=== PATIENT | female | born 1950 | race Caucasian/White ===

== ENCOUNTER → 2018-08-07 | Outpatient (CLI) | payer OTHER ==
[2015-12-01 11:20] VITALS: BP 115/78
[~2018-08-07] MED LIST: ASPI-630 PO; BENA20TA4 PO; BIOT1TAB12 PO; CHOL500016 PO; CINN500C2 PO; COD1CAPS2 PO; FEXO180T81 PO; FOLI1TAB16 PO; GARL10002 PO; HYDR-2145 PO; HYDR-3164 PO; IRON18TA PO; MAGN250T10 PO; METO50TA6 PO; MULT-245 PO; NIAC500T9 PO; OMEG1CAP6 PO; PYRI200T PO; REGADENOSON 0.4 MG/5 ML DISP.SYRIN. IV ONE; TURM500C7 PO; VITA400C36 PO; WARF-78 PO; WARF2.5T83 PO
--- NOTE | 2018-08-07 11:40 | CARD ---
MR#: [id number] Date of Study: 08/07/2018 Ordering Physician: LYUDMILA VAZQUEZ, Referring Physician: LYUDMILA VAZQUEZ Tech: Lindsey Munoz RDCS APPROVED REPORT EXAM: Two-dimensional and M-mode echocardiogram with Doppler and color Doppler. Other Information Quality : Good INDICATION Pre-Op Dyspnea on Exertion, History of VSD/PDA Repair at 10 years old 2D DIMENSIONS RVDd2.3 (2.9-3.5cm)Left Atrium(2D)3.1 (1.6-4.0cm) IVSd0.7 (0.7-1.1cm)Aortic Root(2D)3.0 (2.0-3.7cm) LVDd5.2 (3.9-5.9cm)LVOT Diameter2.1 (1.8-2.4cm) PWd0.8 (0.7-1.1cm)LVDs4.0 (2.5-4.0cm) FS (%) 23.5 %SV61.3 ml LVEF(%)45.0 (>50%) Aortic Valve AoV Peak Nikko.118.1cm/sAoV VTI27.0cm AO Peak GR.5.6mmHgLVOT Peak Nikko.97.5cm/s AO Mean GR.3mmHgAVA (VMAX)2.87cm2 JOON (VTI)3.10cm2 Mitral Valve MV E Soilifss92.4cm/sMV DECEL YDUP789pm MV A Ugolgdmq33.6cm/sE/A Ratio1.4 Tricuspid Valve TR P. Eotmxvvi827fp/sRAP MVCSXGPJ9nkHe TR Peak Gr.82sjXjDYTK07iiSa Pulmonary Vein S1 Sjkvbebv05.2cm/sD2 Vpdxwwtf44.8cm/s LEFT VENTRICLE The left ventricle is normal size. There is normal left ventricular wall thickness. Left ventricle sy stolic function is mildly impaired. The Ejection Fraction is 45-50%. There is global hypokinesis of t he left ventricle. Transmitral Doppler flow pattern is Grade II-pseudonormal filling dynamics. There is a small membranous ventricular septal defect with left to right shunt on color doppler. RIGHT VENTRICLE The right ventricle is normal size. The right ventricular systolic function is normal. ATRIA The left atrium size is normal. The right atrium size is normal. Interatrial septum anuerysmal but in tact without evidence of ASD or PFO, noted on 2-D or Doppler imaging. AORTIC VALVE The aortic valve is not well visualized but appears to be functioning normally by Doppler interrogati on. Doppler and Color Flow revealed no significant aortic regurgitation. There is no significant aort ic valvular stenosis. MITRAL VALVE The mitral valve is calcified but opens well. There is no evidence of mitral valve prolapse. There is no mitral valve stenosis. Doppler and Color-flow revealed mild mitral regurgitation. TRICUSPID VALVE The tricuspid valve is normal in structure and function. Doppler and Color Flow revealed mild eccentr ic tricuspid regurgitation. There is mild pulmonary hypertension. The PA pressure was estimated at 39 mmHg. There is no tricuspid valve stenosis. PULMONIC VALVE The pulmonic valve is not well visualized. Doppler and Color Flow revealed trace pulmonic valvular re gurgitation. There is no pulmonic valvular stenosis. GREAT VESSELS The aortic root is normal in size. The ascending aorta is not well seen. The IVC is normal in size an d collapses >50% with inspiration. PERICARDIAL EFFUSION There is no evidence of significant pericardial effusion. Critical Notification Critical Value: No <Conclusion> Left ventricle systolic function is mildly impaired. The Ejection Fraction is 45-50%. There is a small membranous ventricular septal defect with left to right shunt on color doppler. Mild mitral regurgitation. Mild eccentric tricuspid regurgitation. The PA pressure was estimated at 39 mmHg. There is no evidence of significant pericardial effusion. Signed by : Lyudmila Vazquez, Electronically Approved : 08/07/2018 11:39:37
--- NOTE | 2018-08-07 15:07 | RAD ---
MR#: [id number] Date of Study: 08/07/2018 Ordering Physician: FLIP NAVA, Referring Physician: MONIQUE BERNSTEIN Tech: RT Paula HensleyR) (N) APPROVED REPORT Test Type: Pharmacological Stress Nurse/Tech: Domonique ACUÑA Test Indications: Pre OP check Cardiac History: Cardiac cath 2 yrs ago, HTN, See EMR Medications: See EMR Medical History: See EMR Resting ECG: SR Resting Heart Rate: 64 bpm Resting Blood Pressure: 151/77mmHg Pretest Chest Pain: No chest pain Nurse/Tech Notes Lungs CTA; Heart tones regular. Consent: The procedure was explained to the patient in lay terms. Informed consent was witnessed. Sebastián eout was entered into [employer]. History and Stress Test performed by RT Xander (R) (N) Pharm. Details Pharmacologic stress testing was performed using 0.4mg per 5ml of regadenoson given intravenously ove r 7-10 seconds. Stress Symptoms No chest pain or symptoms. POST EXERCISE Reason for Termination: Infusion complete Max HR: 92 bpm Max Blood Pressure: 148/74mmHg Blood Pressure response to exercise: Normal blood pressure response during stress. Heart Rate response to exercise: WNL Chest Pain: No. Arrhythmia: No. ST Change: No. INTERPRETATION Stress EKG Conclusion: Baseline EKG showed sinus rhythm. No ischemic changes at peak stress. No arr hythmias. Imaging Protocol IMAGE PROTOCOL: Rest Tc-99m/stress Tc-99m 1 day Rest: Stress: Viability: Radiopharm.Tc99m YgkjxnirdKc27i Sestamibi Dose10.5mCi 33mCi Duration 13min. 13min. Img Date 08/07/2018 08/07/2018 Inj-Img Yilq58ipy. 60min. Rest Admin Site:IV - Left AntecubitalAdministrator:RT Shellie (R)(N) Stress Admin Site: IV - Left AntecubitalAdministrator: RT Maureen Terrell)(N) STRESS DATA End Diast. Vol.92.0mlLVEDV index BSA49.0ml End Syst. Vol.28.0mlLVESV index BSA15.0ml Myocardial Njtr554.0gEject. Gtawqupl28.0% Stress Scores Regional WT0.00Summed WT0.00 Regional WM0.00Summed WM4.00 Study quality was good. Left Ventricular size was Normal at Rest and Stress. Lung uptake was . Left Ventricular ejection fraction is 71%. The rest and stress images show normal perfusion, normal contraction and thickening. LV Perf. Quant 17 Seg. SSS0.00 17 Seg. SRS2.00 17 Seg. SDS0.00 Stress Defect Extent (% LAD)0.00Rest Defect Extent (% LAD)3.80Rev. Defect Extent (% LAD)0.00 Stress Defect Extent (% LCX) 0.00Rest Defect Extent (% LCX)0.00Rev. Defect Extent (% LCX)0.00 Stress Defect Extent (% RCA)0.00Rest Defect Extent (% RCA)0.00Rev. Defect Extent (% RCA)0.00 Stress Defect Extent (% WALT)0.00Rest Defect Extent (% WALT)3.90Rev. Defect Extent (% WALT)0.00 Conclusion 1. Regadenoson cardioisotope stress test did not show any evidence of ischemia or infarct. 2. Normal left ventricular systolic function with ejection fraction calculated at 71%. 3. Low risk for cardiac events. Signed by : Wang Nolasco, Electronically Approved : 08/07/2018 15:06:56
== END | disposition home or self-care (01) ==
LOC: ECHO 08:37
PROVIDERS: ATTEND Internal Medicine Cardiovascular Disease
DX: Z01.810 Encounter for preprocedural cardiovascular examination (principal); I08.1 Rheumatic disorders of both mitral and tricuspid valves; I27.20 Pulmonary hypertension, unspecified; I10 Essential (primary) hypertension; R06.09 Other forms of dyspnea
CPT/HCPCS: 78452; 93017; 93306; A9500; J2785

== ENCOUNTER 2018-09-07 06:32 | Day surgery (SDC) | payer OTHER ==
[~2018-09-07] VITALS: Ht 160 cm; Wt 85.0 kg
[~2018-09-07 06:32] MED LIST changes: +BUPIVACAINE-EPI 0.25%-1:200000 MPF 30 ML VIAL. ONE; -HYDR-3164 PO; -REGADENOSON 0.4 MG/5 ML DISP.SYRIN. IV ONE
[2018-09-07] MEDS ORDERED: ONDANSETRON PF 4 MG/2 ML VIAL. IV PRN (07:00)
[2018-09-07] MEDS ORDERED: fentaNYL PF VIAL 100 MCG/2 ML VIAL IV PRN ×2 (07:00)
[2018-09-07] MEDS ORDERED: PROCHLORPERAZINE 10 MG/2 ML VIAL. IV PRN (07:00)
[2018-09-07] MEDS ORDERED: IV RINGERS,LACTATED 1000ML 1,000 ML IV SCH (07:00)
[2018-09-07] MEDS ORDERED: ONDANSETRON PF 4 MG/2 ML VIAL. ONE ×2 (07:11)
[2018-09-07] MEDS ORDERED: PROPOFOL 20 ML IV ONE (07:11)
[2018-09-07] MEDS ORDERED: LIDOCAINE 2% PF 5 ML VIAL. ONE (07:11)
[2018-09-07] MEDS ORDERED: DEXAMETHASONE SOD PHOS 4 MG/ML VIAL ONE ×2 (07:11)
[2018-09-07] MEDS ORDERED: fentaNYL PF VIAL 100 MCG/2 ML VIAL ONE (07:12)
[2018-09-07] MEDS ORDERED: ROCURONIUM 50 MG/5 ML VIAL. ONE (07:12)
[2018-09-07 07:45] LABS: PROTHROMBIN TIME PATIENT 15.5 SEC (11.7-14.0)
[2018-09-07] MEDS ORDERED: ACETAMINOPHEN 500 MG TABLET PO ONE (08:00)
[2018-09-07] MEDS ORDERED: GLYCOPYRROLATE 1 MG/5 ML VIAL. ONE (08:40)
[2018-09-07] MEDS ORDERED: NEOSTIGMINE METHYLSULFATE 5 MG/5 ML SYRINGE. ONE (08:57)
[2018-09-07] MEDS ORDERED: KETOROLAC 30 MG/ML INJ FOR OR. INJ ONE (09:10)
--- NOTE | 2018-09-07 09:16 | PDOC4 ---
Operative Note Operative Note Date: 09/07/2018 Preoperative diagnosis: Incarcerated umbilical hernia PostOperative diagnosis: Same Procedure: Robotic-assisted laparoscopic umbilical hernia repair with mesh Specimen: None Surgeon: Mitch Dictation: Patient is a 68-year-old female is complained of a painful bulge at her umbilicus and present for a number of years getting more painful and larger areas procedure of robotic-assisted laparoscopic ventral hernia repair with mesh was explained to the patient in detail risks benefits were also discussed including bleeding infection injury to intra-abdominal contents possibly necessitating further or open operations alternatives to this procedure also discussed with patient who seemed to understand and gave both verbal and written consent to have the procedure performed. Patient was taken to the operating room placed supine position general anesthesia was initiated once patient was sleep and intubated her abdomen was prepped and draped usual sterile fashion using ChloraPrep and area in the left upper quadrant was injected with quarter percent Marcaine with epinephrine incision was made 11 blade scalpel and a 5 mm Visiport was placed under direct visualization into the abdomen and a pneumoperitoneum was achieved once this was complete a 8mm da Holland port was placed in the left mid abdomen and a 8mm da Holland port was placed in the left lower abdomen the 5 mm left upper quadrant port was changed out for 8mm da Holland port and of robot was brought in and docked all port sites surgeon went to the robotic console using a grasping and Endo Aron scissors the hernia contents were reduced the hernia defect was then closed with a running 20V LOC nonabsorbable suture ventral light ST mesh was then placed over the hernia defect and sewn into place with a running 20V LOC absorbable suture. Once this was complete the pneumoperitoneum was reduced all ports removed port sites were closed for septic or Monocryl Mastisol Steri-Strips and island dressings were applied. Patient was awakened and asked bated operating room taken to recovery in stable condition all sponge instrument needle counts listed as correct estimated blood loss less than 5 mL AGGIE RIVERA MD Sep 07, 2018 09:16
--- NOTE | 2018-09-07 09:19 | DISCH ---
DISCHARGE INSTRUCTIONS Condition on Discharge Condition on Discharge: Stable Activity After Discharge Activity Instructions for Disc: Avoid exertion Other activity instructions: no lifting more than 20 pounds for 2 weeks Diet after Discharge Diet after Discharge: Regular Wound Incision Care Wound/Incision Care: Other, see below Other wound/incision instructi: May shower in 24 hours Contacting the after DC Call your doctor for: If your condition worsens Follow-Up Follow up with: Dr. Rivera in 2 weeks AGGIE RIVERA MD Sep 07, 2018 09:19
[2018-09-07] MEDS ORDERED: SEVOFLURANE 31 TO 60 MINUTES. IH ONE (09:28)
[2018-09-07] MEDS ORDERED: HYDR-3164 PO (09:40)
[2018-09-07] MEDS ORDERED: HYDROcodone/APAP 5/325MG 1 TAB TABLET PO ONE ×2 (09:45)
[2018-09-07] MEDS ORDERED: ceFAZolin 2GM PREMIX 2 GM/50 ML BAG IV ONE (10:00)
[2018-09-07 10:29] VITALS: BP 144/78
== END 2018-09-07 11:07 | disposition home or self-care (01) ==
LOC: SURG 06:32
PROVIDERS: ATTEND Surgery
DX: K42.0 Umbilical hernia with obstruction, without gangrene (principal); I10 Essential (primary) hypertension; E78.00 Pure hypercholesterolemia, unspecified; I48.0 Paroxysmal atrial fibrillation; Z88.6 Allergy status to analgesic agent; Z88.8 Allergy status to other drugs, medicaments and biological substances; Z98.49 Cataract extraction status, unspecified eye; Z79.899 Other long term (current) drug therapy; Z98.890 Other specified postprocedural states; Z96.1 Presence of intraocular lens
CPT/HCPCS: 36415; 49653; 85610; 85730; A7015; C1781; J0696; J1100; J1885; J2001; J2405; J2704; J2710; J3010; J3490; S2900

== ENCOUNTER 2019-02-10 07:31 | Inpatient (IN) | payer OTHER ==
[~2019-02-10] VITALS: Ht 154.9 cm; Wt 84.4 kg
[~2019-02-10 07:31] MED LIST changes: -BUPIVACAINE-EPI 0.25%-1:200000 MPF 30 ML VIAL. ONE; -COD1CAPS2 PO; +COD1CAPS6 PO; +HYDR-3164 PO; +VITA-8 PO; -VITA400C36 PO
[2019-02-10 07:59] LABS: BASO # 0.1 x10^3/uL (0.0-0.2); BASO % 1 % (0-3); EOS # 0.1 x10^3/uL (0.0-0.7); EOS % 2 % (0-3); HEMATOCRIT 45.9 % (36.0-47.0); HEMOGLOBIN 15.4 g/dL (12.0-15.5); LYMPH # 3.2 x10^3/uL (1.0-4.8); LYMPH % 34 % (24-48); MEAN CORPUSCULAR HEMOGLOBIN 31 pg (25-35); MEAN CORPUSCULAR HGB CONC 34 g/dL (31-37); MEAN CORPUSCULAR VOLUME 92 fL (79-100); MONO # 0.6 x10^3/uL (0.0-1.1); MONO % 7 % (0-9); NEUT # 5.5 x10^3/uL (1.8-7.7); NEUT % 57 % (31-73); PLATELET COUNT 277 x10^3/uL (140-400); RED BLOOD COUNT 4.99 x10^6/uL (3.50-5.40); RED CELL DISTRIBUTION WIDTH 13.9 % (11.5-14.5); WHITE BLOOD COUNT 9.5 x10^3/uL (4.0-11.0)
[2019-02-10] MEDS ORDERED: ASPIRIN CHEWABLE 81 MG TABLET. PO ONE (08:00)
[2019-02-10] MEDS ORDERED: ADENOSINE 6 MG/2 ML VIAL. IV ONE ×3 (08:00→08:30)
[2019-02-10] MEDS ORDERED: dilTIAZem IV PUSH 25 MG/5 ML VIAL ONE (08:09)
[2019-02-10 08:14] LABS: CREATININE 0.8 mg/dL (0.6-1.0); GFR 70.9
[2019-02-10 08:20] LABS: ALBUMIN 3.7 g/dL (3.4-5.0); ALBUMIN/GLOBULIN RATIO 0.8 (1.0-1.7); TOTAL BILIRUBIN 0.6 mg/dL (0.2-1.0); TOTAL PROTEIN 8.1 g/dL (6.4-8.2)
--- NOTE | 2019-02-10 08:20 | PHYS DOC ---
Past Medical History Past Medical History: A-Fib Additional Past Medical Histor: SVT Additional Past Surgical Histo: PDA, VSD repair Adult General Chief Complaint Chief Complaint: RAPID HEART RATE HPI HPI Patient is a 68-year-old female, with a past history of ASD and VSD repairs as a child, with a history of atrial fibrillation and SVT in the past, on warfarin, who presents to the emergency department for evaluation. She states that she is relatively asymptomatic, but her apple watch told her that she had a fast heart rate. She presents to the emergency department in a now complex regular tachycardia at a rate of approximately 205 beats for minute. She denies any chest pain, dizziness, lightheadedness, or shortness of breath. There are no alleviating or exacerbating factors to her symptoms. She is not expressing any palpitations, and does not have any sensation that her heart is beating fast. Review of Systems Review of Systems Constitutional: Denies fever or chills [] Eyes: Denies change in visual acuity, redness, or eye pain [] HENT: Denies nasal congestion or sore throat [] Respiratory: Denies cough or shortness of breath [] Cardiovascular: The patient denies any shortness of breath, chest pain, palpitations, or orthopnea [] GI: Denies abdominal pain, nausea, vomiting, bloody stools or diarrhea [] : Denies dysuria or hematuria [] Musculoskeletal: Denies back pain or joint pain [] Integument: Denies rash or skin lesions [] Neurologic: Denies headache, focal weakness or sensory changes [] Endocrine: Denies polyuria or polydipsia [] All other systems were reviewed and found to be within normal limits, except as documented in this note. Current Medications Current Medications Current Medications Medications (Trade) Dose Ordered Sig/[facility] Start Time Stop Time Status Last Admin Dose Admin Adenosine (Adenocard) 12 mg 1X ONCE 02/10/19 08:30 02/10/19 08:31 DC 02/10/19 08:05 12 MG Aspirin (Children'S Aspirin) 324 mg 1X ONCE 02/10/19 08:00 02/10/19 08:01 DC 02/10/19 07:53 324 MG Diltiazem HCl (Cardizem Iv Push) 20 mg 1X ONCE 02/10/19 08:30 02/10/19 08:31 DC 02/10/19 08:15 20 MG Diltiazem HCl 125 mg/Dextrose 125 ml @ 5 mls/hr 1X ONCE 02/10/19 08:30 02/11/19 09:29 02/10/19 08:20 5 MLS/HR Sodium Chloride 1,000 ml @ 1,000 mls/hr 1X ONCE 02/10/19 08:30 02/10/19 09:29 02/10/19 08:20 1,000 MLS/HR Allergies Allergies Allergies Coded Allergies Type Severity Reaction Last Updated Verified codeine Allergy Intermediate 09/05/18 Yes morphine Allergy Intermediate 09/05/18 Yes pamabrom Adverse Reaction Intermediate passed out 09/05/18 Yes Physical Exam Physical Exam PHYSICAL EXAM: CONSTITUTIONAL: Well developed, well nourished HEAD: normocephalic, atraumatic EENT: PERRL, EOMI. Conjunctivae normal color, sclerae non-icteric; moist mucous membranes. NECK: Supple, non-tender; no meningismus. LUNGS: Lungs CTA, breathing even and unlabored. Normal air movement. HEART: Rapid, regular rhythm, no murmur CHEST: No deformity; non-tender ABDOMEN: The abdomen is soft, and non-tender, no masses or bruits. EXTREM: Normal ROM; no deformity, no calf tenderness. Normal pulses palpable in all extremities. There is no pedal edema. SKIN: No rash; no diaphoresis NEURO: Alert; normal speech and cognition; CN's grossly intact; strength grossly intact without focal deficit. BACK: No CVA TTP. Current Patient Data Vital Signs Vital Signs Date Time Temp Pulse Resp B/P (MAP) Pulse Ox O2 Delivery O2 Flow Rate FiO2 02/10/19 08:15 198 117/62 02/10/19 07:32 97.3 20 98 Room Air 97.3 Lab Values Laboratory Tests Test 02/10/19 07:49 White Blood Count 9.5 x10^3/uL (4.0-11.0) Red Blood Count 4.99 x10^6/uL (3.50-5.40) Hemoglobin 15.4 g/dL (12.0-15.5) Hematocrit 45.9 % (36.0-47.0) Mean Corpuscular Volume 92 fL (79-100) Mean Corpuscular Hemoglobin 31 pg (25-35) Mean Corpuscular Hemoglobin Concent 34 g/dL (31-37) Red Cell Distribution Width 13.9 % (11.5-14.5) Platelet Count 277 x10^3/uL (140-400) Neutrophils (%) (Auto) 57 % (31-73) Lymphocytes (%) (Auto) 34 % (24-48) Monocytes (%) (Auto) 7 % (0-9) Eosinophils (%) (Auto) 2 % (0-3) Basophils (%) (Auto) 1 % (0-3) Neutrophils # (Auto) 5.5 x10^3/uL (1.8-7.7) Lymphocytes # (Auto) 3.2 x10^3/uL (1.0-4.8) Monocytes # (Auto) 0.6 x10^3/uL (0.0-1.1) Eosinophils # (Auto) 0.1 x10^3/uL (0.0-0.7) Basophils # (Auto) 0.1 x10^3/uL (0.0-0.2) Prothrombin Time 17.0 SEC (11.7-14.0) H Prothrombin Time INR 1.4 (0.8-1.1) H Sodium Level 138 mmol/L (136-145) Potassium Level 4.1 mmol/L (3.5-5.1) Chloride Level 103 mmol/L (98-107) Carbon Dioxide Level 24 mmol/L (21-32) Anion Gap 11 (6-14) Blood Urea Nitrogen 19 mg/dL (7-20) Creatinine 0.8 mg/dL (0.6-1.0) Estimated GFR (Cockcroft-Gault) 70.9 BUN/Creatinine Ratio 24 (6-20) H Glucose Level 147 mg/dL (70-99) H Calcium Level 9.0 mg/dL (8.5-10.1) Total Bilirubin 0.6 mg/dL (0.2-1.0) Aspartate Amino Transferase (AST) 30 U/L (15-37) Alanine Aminotransferase (ALT) 16 U/L (14-59) Alkaline Phosphatase 98 U/L (46-116) Troponin I Quantitative < 0.017 ng/mL (0.000-0.055) FT-Oai-P-Type Natriuretic Peptide 1800 pg/mL (0-124) H Total Protein 8.1 g/dL (6.4-8.2) Albumin 3.7 g/dL (3.4-5.0) Albumin/Globulin Ratio 0.8 (1.0-1.7) L Laboratory Tests 02/10/19 07:49 Laboratory Tests 02/10/19 07:49 EKG EKG Supraventricular tachycardia at a rate of 205 beats for minute, normal axis, normal intervals, there is lateral ST depression and T-wave inversion.[] Repeat EKG, post Cardizem administration, shows likely atrial flutter interventricular to 104 bpm, normal axis, normal intervals. There are no acute ischemic ST/T changes. Radiology/Procedures Radiology/Procedures ER physician preliminary chest x-ray interpretation: No acute disease.. Cardiomegaly is noted, as are postsurgical sternotomy changes. Course & Med Decision Making Course & Med Decision Making Pertinent Labs and Imaging studies reviewed. (See chart for details) [] 8:15 AM: Initial the adenosine administration of 6 mg did transiently slow the heart rate down, although rapidly accelerated back to its baseline rate of 205 beats for minute. There appeared to be possible flutter waves although there was some motion artifact present. Subsequent only 12 mg of adenosine was administered, with a similar result, although clear diagnostic flutter waves were observed when the ventricular rate was slowed. Thus, AV dilma blocking agents will be administered, and after initial bolus of Cardizem 20 mg the patient's heart rate has dropped to approximately 100 bpm. 9:04 AM: Patient's condition remained stable. Heart rate is in the 60s to 80s, with atrial flutter with variable block. The patient states her INR was 4.3 about a week and a half ago and her physician had her decrease her dose, which might explain her current low INR. I spoke with the hospitalist, who accepted the patient to the hospital for further evaluation and treatment. CRITICAL CARE TIME: 45 Minutes, excluding any procedures and care of other patients. Dragon Disclaimer Dragon Disclaimer This electronic medical record was generated, in whole or in part, using a voice recognition dictation system. Departure Departure Impression: Primary Impression: Atrial flutter with rapid ventricular response Disposition: ADMITTED INPATIENT Admitting Physician: HIMS Condition: GUARDED Referrals: NASIM BONILLA MD (PCP) RICKI PEREZ MD Feb 10, 2019 08:20
[2019-02-10 08:23] LABS: POTASSIUM 4.1 mmol/L (3.5-5.1)
[2019-02-10] MEDS ORDERED: dilTIAZem INJ 125 MG in IV DEXTROSE 5% 100ML 100 ML IV ONE (08:30)
[2019-02-10] MEDS ORDERED: IV NORMAL SALINE 1000ML BAG 1,000 ML IV ONE (08:30)
[2019-02-10] MEDS ORDERED: dilTIAZem IV PUSH 25 MG/5 ML VIAL IVP ONE (08:30)
--- NOTE | 2019-02-10 09:16 | RAD ---
CHEST AP ONLY Clinical Indication: Chest pain, palpitations Comparison: None. Findings: Portable upright frontal view of the chest was obtained. Sternal wires and mediastinal clips noted. The cardiomediastinal silhouette is normal. Lungs are clear. There is no pneumothorax. No pleural effusion is appreciated. No acute bone abnormality. IMPRESSION: No acute cardiopulmonary process. Electronically signed by: Gentry Pereira MD (02/10/2019 9:14 AM) [facility]
[2019-02-10] MEDS ORDERED: traMADol 50 MG TABLET PO PRN (10:00)
[2019-02-10] MEDS ORDERED: ONDANSETRON PF 4 MG/2 ML VIAL. IVP PRN (10:00)
[2019-02-10] MEDS ORDERED: fentaNYL PF VIAL 100 MCG/2 ML VIAL IVP PRN (10:00)
[2019-02-10] MEDS ORDERED: TEMAZEPAM 7.5 MG CAPSULE PO PRN (10:00)
[2019-02-10] MEDS ORDERED: ACETAMINOPHEN 500 MG TABLET PO PRN (10:00)
[2019-02-10 10:12] VITALS: BP 126/84
[2019-02-10] MEDS ORDERED: CETIRIZINE HCL 10 MG TABLET. PO SCH (10:30)
[2019-02-10] MEDS: LISINOPRIL 20 MG TABLET PO SCH ×2 (10:30→10:44)
[2019-02-10] MEDS: METOPROLOL TART IMMED RELEASE 50 MG TABLET. PO SCH ×2 (10:30→21:37)
[2019-02-10] MEDS: PYRIDOXINE 50 MG TABLET. PO SCH (10:43)
[2019-02-10] MEDS: CHOLECALCIFEROL (VITAMIN D3) 5,000 UNIT CAPSULE PO SCH (10:43)
[2019-02-10] MEDS: FOLIC ACID 1 MG TABLET. PO SCH (10:43)
[2019-02-10] MEDS: VITAMIN E 200 UNIT CAPSULE. PO SCH (10:43)
[2019-02-10] MEDS: MAGNESIUM OXIDE 400 MG TABLET PO SCH (10:43)
--- NOTE | 2019-02-10 11:07 | PDOC2 ---
CARDIOLOGY CONSULT NOTE CHEIF COMPLAINT: Heart racing HPI: Very pleasant 68 y.o woman presenting to the hospital for palpitations. Recently seen by my partner Dr. Nolasco and on event monitoring did not have any significant pathology. She was last admitted in November with afib/atach. Was supposed to be started on amiodarone but did not due to underlying bradycardia. She denies any syncope, chest pain, dyspnea,orthopnea or PND. No other acute issues. PMHX: 1. Prior PDA - repaired at 2. Prior VSD repair at age 10 3. HTN 4. 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 No alcohol, tob or illicit drug use. FAMHX: NC CURRENT MEDS: Current Medications Medications (Trade) Dose Ordered Sig/Silvana Route PRN Reason Start Time Stop Time Status Last Admin Dose Admin Adenosine (Adenocard) 6 mg 1X ONCE IV 02/10/19 08:00 02/10/19 08:01 DC 02/10/19 07:54 Aspirin (Children'S Aspirin) 324 mg 1X ONCE PO 02/10/19 08:00 02/10/19 08:01 DC 02/10/19 07:53 Adenosine (Adenocard) 12 mg 1X ONCE IV 02/10/19 08:30 02/10/19 08:31 DC 02/10/19 08:05 Diltiazem HCl (Cardizem Iv Push) 20 mg 1X ONCE IVP 02/10/19 08:30 02/10/19 08:31 DC 02/10/19 08:15 Diltiazem HCl 125 mg/Dextrose 125 ml @ 5 mls/hr 1X ONCE IV 02/10/19 08:30 02/11/19 09:29 02/10/19 08:20 Sodium Chloride 1,000 ml @ 1,000 mls/hr 1X ONCE IV 02/10/19 08:30 02/10/19 09:29 DC 02/10/19 08:20 Folic Acid (Folic Acid) 1 mg DAILY PO 02/10/19 10:30 02/10/19 10:43 Vitamin D (Vitamin D3) 5,000 unit DAILY PO 02/10/19 10:30 02/10/19 10:43 Magnesium Oxide (Magnesium Oxide) 400 mg DAILY PO 02/10/19 10:30 02/10/19 10:43 Pyridoxine HCl (Vitamin B-6) 200 mg DAILY PO 02/10/19 10:30 02/10/19 10:43 Vitamin E (Vitamin E.) 400 unit DAILY PO 02/10/19 10:30 02/10/19 10:43 ALLERGIES: Allergies Coded Allergies Type Severity Reaction Last Updated Verified codeine Allergy Intermediate 09/05/18 Yes morphine Allergy Intermediate 09/05/18 Yes pamabrom Adverse Reaction Intermediate passed out 09/05/18 Yes ROS: Negative for 12/31 systems reviewed unless otherwise noted above in HPI PHYSICAL EXAM: Vital Signs/I&O: Vital Signs Date Time Temp Pulse Resp B/P (MAP) Pulse Ox O2 Delivery O2 Flow Rate FiO2 02/10/19 10:12 97.7 91 18 126/84 (98) 93 Room Air 97.7 Physical Exam: GEN.: No apparent distress. Alert and oriented. HEENT: Head is normocephalic, atraumatic NECK: Supple. LUNGS: Clear to auscultation. HEART: RRR, S1, S2 present. Peripheral pulses intact ABDOMEN: Soft, nontender. Positive bowel sounds. EXTREMITIES: Without any cyanosis. NEUROLOGIC: Normal speech, normal tone PSYCHIATRIC: Normal affect, normal mood. SKIN: No ulcerations DIAGNOSTIC TESTING: EKG reviewed. Tele with atrial flutter INR 1.4 BNP elevated ASSESSMENT: 1. Atrial flutter with variable conduction 2. HTN and other comorbidities as noted above. PLAN: 1. Patient needs to get her tooth removed and also planning to go to [place] next week. She wants conservative mgmt for now. 2. Continue rate control with metoprolol. 3. When she returns from her trips, she will plan for possible CVN if needed versus ablation referral. Ok to DC tomorrow if rate controlled. INR mgmt per PCP. FLIP NAVA MD Feb 10, 2019 11:07
--- NOTE | 2019-02-10 11:21 | PDOC1 ---
History and Physical Date of Admission Date of Admission DATE: 02/10/19 TIME: 11:15 Identification/Chief Complaint Chief Complaint HR 200s by fitbit Source Source: Caregiver, Chart review, Patient History of Present Illness History of Present Illness 68 white female, chronic a fib, known to Dr faria, on warf, INR was 4,1 few days ago so was instructed to hold warf for 2 days so she did and started taking it monday and INR today is 1,4. HR 200s, SVT initially, got adenosine which resolved temporarily then went back, so adenosine 12 mgs, not resolved, HR 200s, and on cardziem gtt- 60 bpm at ER,. CArds consulted,. lytes ok, extra BB dose today, aim for dc tmr as she has a dental procedure etc tmr dw Rn and cards She is compliant with the rest of her cardiac meds Past Medical History Cardiovascular: AFIB, CHF, HTN Pulmonary: No pertinent hx Musculoskeletal: Osteoarthritis Infectious disease: No pertinent hx Past Surgical History Past Surgical History: Other Family History Family History: Hypertension Social History Smoke: No ALCOHOL: rare Drugs: None Current Problem List Problem List Problems Medical Problems: (1) Atrial flutter with rapid ventricular response Status: Acute Current Medications Current Medications Current Medications Adenosine (Adenocard) 6 mg 1X ONCE IV Last administered on 02/10/19at 07:54; Start 02/10/19 at 08:00; Stop 02/10/19 at 08:01; Status DC Aspirin (Children'S Aspirin) 324 mg 1X ONCE PO Last administered on 02/10/19at 07:53; Start 02/10/19 at 08:00; Stop 02/10/19 at 08:01; Status DC Adenosine (Adenocard) 6 mg STK-MED ONCE IV ; Start 02/10/19 at 08:03; Stop 02/10/19 at 08:04; Status DC Diltiazem HCl (Cardizem Iv Push) 25 mg STK-MED ONCE .ROUTE ; Start 02/10/19 at 08:09; Stop 02/10/19 at 08:09; Status DC Adenosine (Adenocard) 12 mg 1X ONCE IV Last administered on 02/10/19at 08:05; Start 02/10/19 at 08:30; Stop 02/10/19 at 08:31; Status DC Diltiazem HCl (Cardizem Iv Push) 20 mg 1X ONCE IVP Last administered on 02/10/19at 08:15; Start 02/10/19 at 08:30; Stop 02/10/19 at 08:31; Status DC Diltiazem HCl 125 mg/Dextrose 125 ml @ 5 mls/hr 1X ONCE IV Last administered on 02/10/19at 08:20; Start 02/10/19 at 08:30; Stop 02/11/19 at 09:29 Sodium Chloride 1,000 ml @ 1,000 mls/hr 1X ONCE IV Last administered on 02/10/19at 08:20; Start 02/10/19 at 08:30; Stop 02/10/19 at 09:29; Status DC Acetaminophen (Tylenol) 500 mg PRN Q6HRS PRN PO MILD PAIN / TEMP; Start 02/10/19 at 10:00 Ondansetron HCl (Zofran) 4 mg PRN Q6HRS PRN IVP NAUSEA/VOMITING; Start 1 04/12/18 at 10:00 Tramadol HCl (Ultram) 50 mg PRN Q6HRS PRN PO MODERATE PAIN; Start 02/10/19 at 10:00 Fentanyl Citrate (Fentanyl 2ml Vial) 50 mcg PRN Q2HR PRN IVP SEVERE PAIN; Start 02/10/19 at 10:00 Temazepam (Restoril) 7.5 mg PRN QHS PRN PO INSOMNIA; Start 02/10/19 at 10:00 Diltiazem HCl 125 mg/Dextrose 125 ml @ 5 mls/hr CONT PRN IV SEE I/O RECORD; Start 02/10/19 at 21:00 Aspirin (Children'S Aspirin) 81 mg DAILY PO ; Start 02/11/19 at 09:00 Folic Acid (Folic Acid) 1 mg DAILY PO Last administered on 02/10/19at 10:43; Start 02/10/19 at 10:30 Metoprolol Tartrate (Lopressor) 50 mg BID PO ; Start 02/10/19 at 10:30 Lisinopril (Prinivil) 20 mg DAILY PO ; Start 02/10/19 at 10:30 Non-Formulary Medication (Biotin/Keratin (Biotin Plus Keratin Tablet)) 1 each DAILY PO ; Start 02/11/19 at 09:00; Status UNV Vitamin D (Vitamin D3) 5,000 unit DAILY PO Last administered on 02/10/19at 10:43; Start 02/10/19 at 10:30 Non-Formulary Medication (Cinnamon Bark (Cinnamon)) 500 mg DAILY PO ; Start 02/11/19 at 09:00; Status UNV Cetirizine HCl (ZyrTEC) 10 mg DAILY PO ; Start 02/10/19 at 10:30; Stop 02/10/19 at 10:36; Status DC Non-Formulary Medication (Garlic ) 1,000 mg DAILY PO ; Start 02/11/19 at 09:00; Status UNV Magnesium Oxide (Magnesium Oxide) 400 mg DAILY PO Last administered on 02/10/19at 10:43; Start 02/10/19 at 10:30 Pyridoxine HCl (Vitamin B-6) 200 mg DAILY PO Last administered on 02/10/19at 10:43; Start 02/10/19 at 10:30 Vitamin E (Vitamin E.) 400 unit DAILY PO Last administered on 02/10/19at 10:43; Start 02/10/19 at 10:30 Warfarin Sodium (Coumadin Per Pharmacy) 1 each PRN DAILY PRN MC SEE COMMENTS; Start 02/10/19 at 10:00 Warfarin Sodium (Coumadin) 5 mg 1X WARF ONCE PO ; Start 02/10/19 at 16:00; Stop 02/10/19 at 16:01 Enoxaparin Sodium (Lovenox 40mg Syringe) 40 mg Q24H SQ ; Start 02/10/19 at 16:00; Stop 02/10/19 at 10:32; Status DC Enoxaparin Sodium (Lovenox 80mg Syringe) 80 mg BID SQ Last administered on 02/10/19at 11:01; Start 02/10/19 at 10:45 Metoprolol Tartrate (Lopressor) 25 mg 1X ONCE PO ; Start 02/10/19 at 11:30; Stop 02/10/19 at 11:31 Active Scripts Active Reported Coumadin (Warfarin Sodium) 2.5 Mg Tablet 1 Tab PO QODAY Benazepril Hcl 20 Mg Tablet 1 Tab PO DAILY Metoprolol Tartrate 50 Mg Tablet 1 Tab PO BID Biotin Plus Keratin Tablet (Biotin/Keratin) 1 Each Tablet 1 Each PO DAILY Aspirin 81 Mg Tab.chew 1 Tab PO DAILY Garlic 1,000 Mg Capsule 1,000 Mg PO DAILY Vitamin D3 (Cholecalciferol (Vitamin D3)) 5,000 Unit Tablet 1 Tab PO DAILY Magnesium (Magnesium Oxide) 250 Mg Tablet 250 Mg PO DAILY Cinnamon (Cinnamon Bark) 500 Mg Capsule 500 Mg PO DAILY Vitamin B-6 (Pyridoxine Hcl) 200 Mg Tablet.er 200 Mg PO DAILY Folic Acid 1 Mg Tablet 1 Tab PO DAILY Vitamin E (Vitamin E Mixed) 400 Unit Capsule 400 Unit PO DAILY Allergies Allergies: Coded Allergies: codeine (Verified Allergy, Intermediate, 09/05/18) HYPOTENSION morphine (Verified Allergy, Intermediate, 09/05/18) HYPOTENSION pamabrom (Verified Adverse Reaction, Intermediate, passed out, 09/05/18) PATIENT IS NOT ALLERGIC TO ACETOMINOPHEN ROS Review of System no symptoms whatsoever with that HR 200s Physical Exam General: Alert, Oriented X3, Cooperative, No acute distress HEENT: Atraumatic, PERRLA Lungs: Clear to auscultation, Normal air movement Heart: S1S2, no thrills, no rubs, no gallops, no murmurs, no jug vein distention, irregularly irregular Cardiovascular: S1, S2 Breasts: Normal, Rt breast nml w/o mass, Lt breast nml w/o mass, Nipples normal Abdomen: Normal bowel sounds, Soft, No tenderness, No hepatosplenomegaly, No masses Rectal Exam: not examined PELVIC: Nml ext genitalia Extremities: No clubbing, No cyanosis, No edema, Normal pulses, No tenderness/swelling Skin: No rashes, No breakdown, No significant lesion Neuro: Normal gait, Normal speech, Strength at 5/5 X4 ext, Normal tone, Sensation intact, Cranial nerves 3-12 NL, Reflexes 2+ Psych/Mental Status: Mental status NL, Mood NL Vitals Vitals Vital Signs Date Time Temp Pulse Resp B/P (MAP) Pulse Ox O2 Delivery O2 Flow Rate FiO2 02/10/19 10:12 97.7 91 18 126/84 (98) 93 Room Air 97.7 Labs Labs Laboratory Tests Test 02/10/19 07:49 White Blood Count 9.5 x10^3/uL (4.0-11.0) Red Blood Count 4.99 x10^6/uL (3.50-5.40) Hemoglobin 15.4 g/dL (12.0-15.5) Hematocrit 45.9 % (36.0-47.0) Mean Corpuscular Volume 92 fL (79-100) Mean Corpuscular Hemoglobin 31 pg (25-35) Mean Corpuscular Hemoglobin Concent 34 g/dL (31-37) Red Cell Distribution Width 13.9 % (11.5-14.5) Platelet Count 277 x10^3/uL (140-400) Neutrophils (%) (Auto) 57 % (31-73) Lymphocytes (%) (Auto) 34 % (24-48) Monocytes (%) (Auto) 7 % (0-9) Eosinophils (%) (Auto) 2 % (0-3) Basophils (%) (Auto) 1 % (0-3) Neutrophils # (Auto) 5.5 x10^3/uL (1.8-7.7) Lymphocytes # (Auto) 3.2 x10^3/uL (1.0-4.8) Monocytes # (Auto) 0.6 x10^3/uL (0.0-1.1) Eosinophils # (Auto) 0.1 x10^3/uL (0.0-0.7) Basophils # (Auto) 0.1 x10^3/uL (0.0-0.2) Prothrombin Time 17.0 SEC (11.7-14.0) Prothromb Time International Ratio 1.4 (0.8-1.1) Sodium Level 138 mmol/L (136-145) Potassium Level 4.1 mmol/L (3.5-5.1) Chloride Level 103 mmol/L (98-107) Carbon Dioxide Level 24 mmol/L (21-32) Anion Gap 11 (6-14) Blood Urea Nitrogen 19 mg/dL (7-20) Creatinine 0.8 mg/dL (0.6-1.0) Estimated GFR (Cockcroft-Gault) 70.9 BUN/Creatinine Ratio 24 (6-20) Glucose Level 147 mg/dL (70-99) Calcium Level 9.0 mg/dL (8.5-10.1) Magnesium Level 1.6 mg/dL (1.8-2.4) Total Bilirubin 0.6 mg/dL (0.2-1.0) Aspartate Amino Transf (AST/SGOT) 30 U/L (15-37) Alanine Aminotransferase (ALT/SGPT) 16 U/L (14-59) Alkaline Phosphatase 98 U/L (46-116) Troponin I Quantitative < 0.017 ng/mL (0.000-0.055) ST-Ndb-I-Type Natriuretic Peptide 1800 pg/mL (0-124) Total Protein 8.1 g/dL (6.4-8.2) Albumin 3.7 g/dL (3.4-5.0) Albumin/Globulin Ratio 0.8 (1.0-1.7) Thyroid Stimulating Hormone (TSH) 2.829 uIU/mL (0.358-3.74) Laboratory Tests Test 02/10/19 07:49 White Blood Count 9.5 x10^3/uL (4.0-11.0) Red Blood Count 4.99 x10^6/uL (3.50-5.40) Hemoglobin 15.4 g/dL (12.0-15.5) Hematocrit 45.9 % (36.0-47.0) Mean Corpuscular Volume 92 fL (79-100) Mean Corpuscular Hemoglobin 31 pg (25-35) Mean Corpuscular Hemoglobin Concent 34 g/dL (31-37) Red Cell Distribution Width 13.9 % (11.5-14.5) Platelet Count 277 x10^3/uL (140-400) Neutrophils (%) (Auto) 57 % (31-73) Lymphocytes (%) (Auto) 34 % (24-48) Monocytes (%) (Auto) 7 % (0-9) Eosinophils (%) (Auto) 2 % (0-3) Basophils (%) (Auto) 1 % (0-3) Neutrophils # (Auto) 5.5 x10^3/uL (1.8-7.7) Lymphocytes # (Auto) 3.2 x10^3/uL (1.0-4.8) Monocytes # (Auto) 0.6 x10^3/uL (0.0-1.1) Eosinophils # (Auto) 0.1 x10^3/uL (0.0-0.7) Basophils # (Auto) 0.1 x10^3/uL (0.0-0.2) Prothrombin Time 17.0 SEC (11.7-14.0) Prothromb Time International Ratio 1.4 (0.8-1.1) Sodium Level 138 mmol/L (136-145) Potassium Level 4.1 mmol/L (3.5-5.1) Chloride Level 103 mmol/L (98-107) Carbon Dioxide Level 24 mmol/L (21-32) Anion Gap 11 (6-14) Blood Urea Nitrogen 19 mg/dL (7-20) Creatinine 0.8 mg/dL (0.6-1.0) Estimated GFR (Cockcroft-Gault) 70.9 BUN/Creatinine Ratio 24 (6-20) Glucose Level 147 mg/dL (70-99) Calcium Level 9.0 mg/dL (8.5-10.1) Magnesium Level 1.6 mg/dL (1.8-2.4) Total Bilirubin 0.6 mg/dL (0.2-1.0) Aspartate Amino Transf (AST/SGOT) 30 U/L (15-37) Alanine Aminotransferase (ALT/SGPT) 16 U/L (14-59) Alkaline Phosphatase 98 U/L (46-116) Troponin I Quantitative < 0.017 ng/mL (0.000-0.055) XS-Drx-L-Type Natriuretic Peptide 1800 pg/mL (0-124) Total Protein 8.1 g/dL (6.4-8.2) Albumin 3.7 g/dL (3.4-5.0) Albumin/Globulin Ratio 0.8 (1.0-1.7) Thyroid Stimulating Hormone (TSH) 2.829 uIU/mL (0.358-3.74) VTE Prophylaxis Ordered VTE Prophylaxis Devices: Yes VTE Pharmacological Prophylaxi: Yes Assessment/Plan Assessment/Plan PErmanent a fib RVR - cardizem gtt, extra dose BB now SUb therapeutic INR - was supra few days ago, so she followed withholding instructions Dental extraction on feb 19 - so ok to resume warf and lovenox BID bridging HTN controlled PLAn:RAte control Loevnox BD till INR goal Home tmr - hanna s a full schedule tmr dw cards and rn I have reconciled home meds AYAH HARRIS MD Feb 10, 2019 11:21
[2019-02-10] MEDS ORDERED: METOPROLOL TART IMMED RELEASE 25 MG TABLET. PO ONE (11:30)
--- NOTE | 2019-02-10 13:26 | NUR ---
Pharmacy Warfarin Dosing Note S:Pharmacy consulted to assist with anticoagulation therapy, with target INR: 2 - 3 O:CHRISTIAN BECK is a 68 year old F with Atrial Fibrillation LABS: Last INR: 1.4 Last HGB: 15.4 Last HCT: 45.9 Last PLT: 277 Previous Regimen: 2.5 mg/day Drug Interaction Changes: Same Interacting Drug Ongoing Drug Interactions: ASA A:INR of 1.4 is below desired range. Target range for this patient is: 2 - 3. She is receiving therapeutic Lovenox as an anticoagulation bridge. P: Warfarin dose: 2.5 mg Today at 1600 Bridge Therapy: Enoxaparin 1 mg/kg q12h Next INR due 02/11/19 Pharmacy anticoagulation service will continue to follow. ANNA MARIE STANLEY [facility], 02/10/19 [id number]
[2019-02-10 14:33] VITALS: BP 118/71
[2019-02-10] MEDS ORDERED: WARFARIN 2.5 MG TABLET. PO ONE (16:00)
[2019-02-10] MEDS ORDERED: WARFARIN 5 MG TABLET. PO ONE (16:00)
[2019-02-10] MEDS ORDERED: ENOXAPARIN 40 MG/0.4 ML SYRINGE. SQ SCH (16:00)
[2019-02-10 19:00] VITALS: BP 128/74
[2019-02-10] MEDS ORDERED: dilTIAZem INJ 125 MG in IV DEXTROSE 5% 100ML 100 ML IV PRN (21:00)
[2019-02-10 23:00] VITALS: BP 120/70
[2019-02-11 03:00] VITALS: BP 123/79
[2019-02-11 05:23] LABS: PROTHROMBIN TIME PATIENT 18.1 SEC (11.7-14.0)
[2019-02-11 07:00] VITALS: BP 118/78
--- NOTE | 2019-02-11 07:19 | EKG ---
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
--- NOTE | 2019-02-11 07:19 | EKG ---
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
--- NOTE | 2019-02-11 07:50 | PDOC ---
PROGRESS NOTES Chief Complaint Chief Complaint Atrial flutter with rapid ventricular response - Paroxsymal atrial fibrillation HTN hypomagnesemia H/o PDA - repaired at H/o VSD - age 10 repair History of Present Illness History of Present Illness Ms Leone is a 68 female w/ PMHx chronic a fib, dCHF, HTN, known to Dr faria, on warf, INR was 4,1 few days ago so was instructed to hold warfarin for 2 days so she did and started taking it monday and INR on admit 1.4. HR 200s, SVT initially, got adenosine which resolved temporarily then went back into SVT, so adenosine 12 mgs, not resolved, HR 200s, and on cardizem gtt- 60 bpm at ER,. Cardiology consulted. This morning still in afib in 230s. She is fatigued, denies CP. Answers the phone during our conversation and placed her hand in my face, I left the room. Notably her mag level is 1.4 today. Plan: Replace mag 4g IV, continue cardizem Vitals Vitals Vital Signs Date Time Temp Pulse Resp B/P (MAP) Pulse Ox O2 Delivery O2 Flow Rate FiO2 02/11/19 03:00 97.8 115 20 123/79 (94) 96 Room Air 97.8 Physical Exam General: Alert, Oriented X3, Cooperative, No acute distress Lungs: Clear Abdomen: Normal bowel sounds, Soft, No tenderness, No hepatosplenomegaly, No masses Extremities: No clubbing, No cyanosis, No edema, Normal pulses, No tenderness/swelling Skin: No rashes, No breakdown, No significant lesion Labs LABS Laboratory Tests Test 02/10/19 07:49 02/11/19 04:20 White Blood Count 9.5 x10^3/uL (4.0-11.0) Red Blood Count 4.99 x10^6/uL (3.50-5.40) Hemoglobin 15.4 g/dL (12.0-15.5) Hematocrit 45.9 % (36.0-47.0) Mean Corpuscular Volume 92 fL (79-100) Mean Corpuscular Hemoglobin 31 pg (25-35) Mean Corpuscular Hemoglobin Concent 34 g/dL (31-37) Red Cell Distribution Width 13.9 % (11.5-14.5) Platelet Count 277 x10^3/uL (140-400) Neutrophils (%) (Auto) 57 % (31-73) Lymphocytes (%) (Auto) 34 % (24-48) Monocytes (%) (Auto) 7 % (0-9) Eosinophils (%) (Auto) 2 % (0-3) Basophils (%) (Auto) 1 % (0-3) Neutrophils # (Auto) 5.5 x10^3/uL (1.8-7.7) Lymphocytes # (Auto) 3.2 x10^3/uL (1.0-4.8) Monocytes # (Auto) 0.6 x10^3/uL (0.0-1.1) Eosinophils # (Auto) 0.1 x10^3/uL (0.0-0.7) Basophils # (Auto) 0.1 x10^3/uL (0.0-0.2) Prothrombin Time 17.0 SEC (11.7-14.0) 18.1 SEC (11.7-14.0) Prothromb Time International Ratio 1.4 (0.8-1.1) 1.5 (0.8-1.1) Sodium Level 138 mmol/L (136-145) Potassium Level 4.1 mmol/L (3.5-5.1) Chloride Level 103 mmol/L (98-107) Carbon Dioxide Level 24 mmol/L (21-32) Anion Gap 11 (6-14) Blood Urea Nitrogen 19 mg/dL (7-20) Creatinine 0.8 mg/dL (0.6-1.0) Estimated GFR (Cockcroft-Gault) 70.9 BUN/Creatinine Ratio 24 (6-20) Glucose Level 147 mg/dL (70-99) Calcium Level 9.0 mg/dL (8.5-10.1) Magnesium Level 1.6 mg/dL (1.8-2.4) Total Bilirubin 0.6 mg/dL (0.2-1.0) Aspartate Amino Transf (AST/SGOT) 30 U/L (15-37) Alanine Aminotransferase (ALT/SGPT) 16 U/L (14-59) Alkaline Phosphatase 98 U/L (46-116) Troponin I Quantitative < 0.017 ng/mL (0.000-0.055) ZP-[id number]-[id number]-Type Natriuretic Peptide 1800 pg/mL (0-124) Total Protein 8.1 g/dL (6.4-8.2) Albumin 3.7 g/dL (3.4-5.0) Albumin/Globulin Ratio 0.8 (1.0-1.7) Thyroid Stimulating Hormone (TSH) 2.829 uIU/mL (0.358-3.74) Assessment and Plan Assessmemt and Plan Problems Medical Problems: (1) Atrial flutter with rapid ventricular response Status: Acute Comment Review of Relevant I have reviewed the following items neymar (where applicable) has been applied. Labs Laboratory Tests Test 02/10/19 07:49 02/11/19 04:20 White Blood Count 9.5 x10^3/uL (4.0-11.0) Red Blood Count 4.99 x10^6/uL (3.50-5.40) Hemoglobin 15.4 g/dL (12.0-15.5) Hematocrit 45.9 % (36.0-47.0) Mean Corpuscular Volume 92 fL (79-100) Mean Corpuscular Hemoglobin 31 pg (25-35) Mean Corpuscular Hemoglobin Concent 34 g/dL (31-37) Red Cell Distribution Width 13.9 % (11.5-14.5) Platelet Count 277 x10^3/uL (140-400) Neutrophils (%) (Auto) 57 % (31-73) Lymphocytes (%) (Auto) 34 % (24-48) Monocytes (%) (Auto) 7 % (0-9) Eosinophils (%) (Auto) 2 % (0-3) Basophils (%) (Auto) 1 % (0-3) Neutrophils # (Auto) 5.5 x10^3/uL (1.8-7.7) Lymphocytes # (Auto) 3.2 x10^3/uL (1.0-4.8) Monocytes # (Auto) 0.6 x10^3/uL (0.0-1.1) Eosinophils # (Auto) 0.1 x10^3/uL (0.0-0.7) Basophils # (Auto) 0.1 x10^3/uL (0.0-0.2) Prothrombin Time 17.0 SEC (11.7-14.0) 18.1 SEC (11.7-14.0) Prothromb Time International Ratio 1.4 (0.8-1.1) 1.5 (0.8-1.1) Sodium Level 138 mmol/L (136-145) Potassium Level 4.1 mmol/L (3.5-5.1) Chloride Level 103 mmol/L (98-107) Carbon Dioxide Level 24 mmol/L (21-32) Anion Gap 11 (6-14) Blood Urea Nitrogen 19 mg/dL (7-20) Creatinine 0.8 mg/dL (0.6-1.0) Estimated GFR (Cockcroft-Gault) 70.9 BUN/Creatinine Ratio 24 (6-20) Glucose Level 147 mg/dL (70-99) Calcium Level 9.0 mg/dL (8.5-10.1) Magnesium Level 1.6 mg/dL (1.8-2.4) Total Bilirubin 0.6 mg/dL (0.2-1.0) Aspartate Amino Transf (AST/SGOT) 30 U/L (15-37) Alanine Aminotransferase (ALT/SGPT) 16 U/L (14-59) Alkaline Phosphatase 98 U/L (46-116) Troponin I Quantitative < 0.017 ng/mL (0.000-0.055) KC-Uwo-P-Type Natriuretic Peptide 1800 pg/mL (0-124) Total Protein 8.1 g/dL (6.4-8.2) Albumin 3.7 g/dL (3.4-5.0) Albumin/Globulin Ratio 0.8 (1.0-1.7) Thyroid Stimulating Hormone (TSH) 2.829 uIU/mL (0.358-3.74) Laboratory Tests Test 02/10/19 07:49 02/11/19 04:20 White Blood Count 9.5 x10^3/uL (4.0-11.0) Red Blood Count 4.99 x10^6/uL (3.50-5.40) Hemoglobin 15.4 g/dL (12.0-15.5) Hematocrit 45.9 % (36.0-47.0) Mean Corpuscular Volume 92 fL (79-100) Mean Corpuscular Hemoglobin 31 pg (25-35) Mean Corpuscular Hemoglobin Concent 34 g/dL (31-37) Red Cell Distribution Width 13.9 % (11.5-14.5) Platelet Count 277 x10^3/uL (140-400) Neutrophils (%) (Auto) 57 % (31-73) Lymphocytes (%) (Auto) 34 % (24-48) Monocytes (%) (Auto) 7 % (0-9) Eosinophils (%) (Auto) 2 % (0-3) Basophils (%) (Auto) 1 % (0-3) Neutrophils # (Auto) 5.5 x10^3/uL (1.8-7.7) Lymphocytes # (Auto) 3.2 x10^3/uL (1.0-4.8) Monocytes # (Auto) 0.6 x10^3/uL (0.0-1.1) Eosinophils # (Auto) 0.1 x10^3/uL (0.0-0.7) Basophils # (Auto) 0.1 x10^3/uL (0.0-0.2) Prothrombin Time 17.0 SEC (11.7-14.0) 18.1 SEC (11.7-14.0) Prothromb Time International Ratio 1.4 (0.8-1.1) 1.5 (0.8-1.1) Sodium Level 138 mmol/L (136-145) Potassium Level 4.1 mmol/L (3.5-5.1) Chloride Level 103 mmol/L (98-107) Carbon Dioxide Level 24 mmol/L (21-32) Anion Gap 11 (6-14) Blood Urea Nitrogen 19 mg/dL (7-20) Creatinine 0.8 mg/dL (0.6-1.0) Estimated GFR (Cockcroft-Gault) 70.9 BUN/Creatinine Ratio 24 (6-20) Glucose Level 147 mg/dL (70-99) Calcium Level 9.0 mg/dL (8.5-10.1) Magnesium Level 1.6 mg/dL (1.8-2.4) Total Bilirubin 0.6 mg/dL (0.2-1.0) Aspartate Amino Transf (AST/SGOT) 30 U/L (15-37) Alanine Aminotransferase (ALT/SGPT) 16 U/L (14-59) Alkaline Phosphatase 98 U/L (46-116) Troponin I Quantitative < 0.017 ng/mL (0.000-0.055) DO-[id number]-X-Type Natriuretic Peptide 1800 pg/mL (0-124) Total Protein 8.1 g/dL (6.4-8.2) Albumin 3.7 g/dL (3.4-5.0) Albumin/Globulin Ratio 0.8 (1.0-1.7) Thyroid Stimulating Hormone (TSH) 2.829 uIU/mL (0.358-3.74) Medications Current Medications Adenosine (Adenocard) 6 mg 1X ONCE IV Last administered on 02/10/19 07:54; Start 02/10/19 at 08:00; Stop 02/10/19 at 08:01; Status DC Aspirin (Children'S Aspirin) 324 mg 1X ONCE PO Last administered on 02/10/19 07:53; Start 02/10/19 at 08:00; Stop 02/10/19 at 08:01; Status DC Adenosine (Adenocard) 6 mg STK-MED ONCE IV ; Start 02/10/19 at 08:03; Stop 02/10/19 at 08:04; Status DC Diltiazem HCl (Cardizem Iv Push) 25 mg STK-MED ONCE .ROUTE ; Start 02/10/19 at 08:09; Stop 02/10/19 at 08:09; Status DC Adenosine (Adenocard) 12 mg 1X ONCE IV Last administered on 02/10/19at 08:05; Start 02/10/19 at 08:30; Stop 02/10/19 at 08:31; Status DC Diltiazem HCl (Cardizem Iv Push) 20 mg 1X ONCE IVP Last administered on 1 04/12/18at 08:15; Start 02/10/19 at 08:30; Stop 02/10/19 at 08:31; Status DC Diltiazem HCl 125 mg/Dextrose 125 ml @ 5 mls/hr 1X ONCE IV Last administered on 02/10/19at 08:20; Start 02/10/19 at 08:30; Stop 02/11/19 at 09:29 Sodium Chloride 1,000 ml @ 1,000 mls/hr 1X ONCE IV Last administered on 02/10/19at 08:20; Start 02/10/19 at 08:30; Stop 02/10/19 at 09:29; Status DC Acetaminophen (Tylenol) 500 mg PRN Q6HRS PRN PO MILD PAIN / TEMP; Start 02/10/19 at 10:00 Ondansetron HCl (Zofran) 4 mg PRN Q6HRS PRN IVP NAUSEA/VOMITING; Start 02/10/19 at 10:00 Tramadol HCl (Ultram) 50 mg PRN Q6HRS PRN PO MODERATE PAIN; Start 02/10/19 at 10:00 Fentanyl Citrate (Fentanyl 2ml Vial) 50 mcg PRN Q2HR PRN IVP SEVERE PAIN; Start 02/10/19 at 10:00 Temazepam (Restoril) 7.5 mg PRN QHS PRN PO INSOMNIA; Start 02/10/19 at 10:00 Diltiazem HCl 125 mg/Dextrose 125 ml @ 5 mls/hr CONT PRN IV SEE I/O RECORD; Start 02/10/19 at 21:00 Aspirin (Children'S Aspirin) 81 mg DAILY PO ; Start 02/11/19 at 09:00 Folic Acid (Folic Acid) 1 mg DAILY PO Last administered on 02/10/19at 10:43; Start 02/10/19 at 10:30 Metoprolol Tartrate (Lopressor) 50 mg BID PO Last administered on 02/10/19at 21:37; Start 02/10/19 at 10:30 Lisinopril (Prinivil) 20 mg DAILY PO ; Start 02/10/19 at 10:30 Non-Formulary Medication (Biotin/Keratin (Biotin Plus Keratin Tablet)) 1 each DAILY PO ; Start 02/11/19 at 09:00; Status UNV Vitamin D (Vitamin D3) 5,000 unit DAILY PO Last administered on 02/10/19at 10:43; Start 02/10/19 at 10:30 Non-Formulary Medication (Cinnamon Bark (Cinnamon)) 500 mg DAILY PO ; Start 02/11/19 at 09:00; Status UNV Cetirizine HCl (ZyrTEC) 10 mg DAILY PO ; Start 02/10/19 at 10:30; Stop 02/10/19 at 10:36; Status DC Non-Formulary Medication (Garlic ) 1,000 mg DAILY PO ; Start 02/11/19 at 09:00; Status UNV Magnesium Oxide (Magnesium Oxide) 400 mg DAILY PO Last administered on 02/10/19at 10:43; Start 02/10/19 at 10:30 Pyridoxine HCl (Vitamin B-6) 200 mg DAILY PO Last administered on 02/10/19at 10:43; Start 02/10/19 at 10:30 Vitamin E (Vitamin E.) 400 unit DAILY PO Last administered on 02/10/19at 10:43; Start 02/10/19 at 10:30 Warfarin Sodium (Coumadin Per Pharmacy) 1 each PRN DAILY PRN MC SEE COMMENTS Last administered on 02/10/19at 13:26; Start 02/10/19 at 10:00 Warfarin Sodium (Coumadin) 5 mg 1X WARF ONCE PO ; Start 02/10/19 at 16:00; Stop 02/10/19 at 16:01; Status Cancel Enoxaparin Sodium (Lovenox 40mg Syringe) 40 mg Q24H SQ ; Start 02/10/19 at 16:00; Stop 02/10/19 at 10:32; Status DC Enoxaparin Sodium (Lovenox 80mg Syringe) 80 mg BID SQ Last administered on 02/10/19at 21:44; Start 02/10/19 at 10:45 Metoprolol Tartrate (Lopressor) 25 mg 1X ONCE PO Last administered on 02/10/19at 11:30; Start 02/10/19 at 11:30; Stop 02/10/19 at 11:31; Status DC Warfarin Sodium (Coumadin) 2.5 mg 1X WARF ONCE PO Last administered on 02/10/19at 17:25; Start 02/10/19 at 16:00; Stop 02/10/19 at 16:01; Status DC Active Scripts Active Reported Coumadin (Warfarin Sodium) 2.5 Mg Tablet 1 Tab PO QODAY Benazepril Hcl 20 Mg Tablet 1 Tab PO DAILY Metoprolol Tartrate 50 Mg Tablet 1 Tab PO BID Biotin Plus Keratin Tablet (Biotin/Keratin) 1 Each Tablet 1 Each PO DAILY Aspirin 81 Mg Tab.chew 1 Tab PO DAILY Garlic 1,000 Mg Capsule 1,000 Mg PO DAILY Vitamin D3 (Cholecalciferol (Vitamin D3)) 5,000 Unit Tablet 1 Tab PO DAILY Magnesium (Magnesium Oxide) 250 Mg Tablet 250 Mg PO DAILY Cinnamon (Cinnamon Bark) 500 Mg Capsule 500 Mg PO DAILY Vitamin B-6 (Pyridoxine Hcl) 200 Mg Tablet.er 200 Mg PO DAILY Folic Acid 1 Mg Tablet 1 Tab PO DAILY Vitamin E (Vitamin E Mixed) 400 Unit Capsule 400 Unit PO DAILY Vitals/I & O Vital Sign - Last 24 Hours 02/10/19 02/10/19 02/10/19 02/10/19 08:12 08:15 08:30 08:45 Pulse 198 198 102 90 Resp 20 18 18 B/P (MAP) 117/62 (80) 117/62 113/76 (88) 113/82 (92) Pulse Ox 98 96 96 O2 Delivery Room Air Room Air Room Air 02/10/19 02/10/19 02/10/19 02/10/19 09:00 09:15 09:45 10:12 Temp 97.7 97.7 Pulse 76 84 91 Resp 16 18 18 B/P (MAP) 119/87 (98) 129/84 (99) 126/84 (98) Pulse Ox 96 97 93 O2 Delivery Room Air Room Air Room Air Room Air 02/10/19 02/10/19 02/10/19 02/10/19 11:30 14:33 19:00 20:00 Temp 97.7 98.3 97.7 98.3 Pulse 110 113 Resp 18 20 B/P (MAP) 126/84 118/71 (87) 128/74 (92) Pulse Ox 96 94 O2 Delivery Room Air Room Air Room Air 02/10/19 02/10/19 02/11/19 21:37 23:00 03:00 Temp 98.1 97.8 98.1 97.8 Pulse 113 114 115 Resp 16 20 B/P (MAP) 128/74 120/70 (87) 123/79 (94) Pulse Ox 96 96 O2 Delivery Room Air Room Air Intake and Output 0 02/10/19 02/10/19 02/11/19 15:00 23:00 07:00 Intake Total 800 ml 1040 ml Output Total 300 ml Balance 800 ml 740 ml CARLY BEE MD Feb 11, 2019 07:50
[2019-02-11 08:02] LABS: CALCIUM 8.5 mg/dL (8.5-10.1); CREATININE 0.8 mg/dL (0.6-1.0); GFR 70.9; MAGNESIUM 1.4 mg/dL (1.8-2.4)
[2019-02-11] MEDS ORDERED: NON FORMULARY ITEM (Garlic 1,000 MG) PO SCH (09:00)
[2019-02-11] MEDS ORDERED: KERATIN PO SCH (09:00)
[2019-02-11] MEDS ORDERED: BIOTIN PO SCH (09:00)
[2019-02-11] MEDS ORDERED: NON FORMULARY ITEM (Cinnamon Bark (Cinnamon) 500 MG) PO SCH (09:00)
[2019-02-11] MEDS: ASPIRIN CHEWABLE 81 MG TABLET. PO SCH (09:03)
[2019-02-11] MEDS: VITAMIN E 200 UNIT CAPSULE. PO SCH (09:03)
[2019-02-11] MEDS: METOPROLOL TART IMMED RELEASE 50 MG TABLET. PO SCH ×2 (09:03→21:04)
[2019-02-11] MEDS: PYRIDOXINE 50 MG TABLET. PO SCH (09:03)
[2019-02-11] MEDS: LISINOPRIL 20 MG TABLET PO SCH (09:04)
[2019-02-11] MEDS: MAGNESIUM OXIDE 400 MG TABLET PO SCH (09:04)
[2019-02-11] MEDS: CHOLECALCIFEROL (VITAMIN D3) 5,000 UNIT CAPSULE PO SCH (09:04)
[2019-02-11] MEDS: FOLIC ACID 1 MG TABLET. PO SCH (09:04)
[2019-02-11] MEDS ORDERED: DIGOXIN IV 500 MCG/2 ML AMPUL. ONE (10:14)
[2019-02-11] MEDS ORDERED: DIGOXIN IV 500 MCG/2 ML AMPUL. IV ONE (10:15)
[2019-02-11 11:00] VITALS: BP 133/82
[2019-02-11] MEDS ORDERED: MAGNESIUM SULFATE 4GM 100 ML IV ONE (11:00)
--- NOTE | 2019-02-11 13:40 | PDOC ---
PROGRESS NOTES Subjective Subjective Patient denied any chest pain. She had palpitations earlier when she was using the restroom. Objective Objective Vital Signs Date Time Temp Pulse Resp B/P (MAP) Pulse Ox O2 Delivery O2 Flow Rate FiO2 02/11/19 11:00 98.3 117 18 133/82 (99) 95 Room Air 98.3 Intake and Output 02/11/19 07:00 Intake Total 1840 ml Output Total 300 ml Balance 1540 ml Intake Oral 1840 ml Output Urine Total 300 ml # Voids 1 Physical Exam Abdomen: Normal bowel sounds, Soft, No tenderness, No hepatosplenomegaly, No masses Heart: Other (heart rate is irregular) Extremities: No edema, No tenderness/swelling General: Alert, Oriented X3, Cooperative, No acute distress HEENT: Atraumatic, PERRLA Lungs: Clear to auscultation, Normal air movement Neuro: Normal gait, Normal speech, Normal tone, Sensation intact, Reflexes 2+ Psych/Mental Status: Mental status NL, Mood NL Skin: No rashes, No breakdown, No significant lesion Assessment Assessment 1. Atrial flutter/fibrillation: Heart rate continues to be elevated. She received IV digoxin earlier. Continue metoprolol and start amiodarone for antiarrhythmic therapy. If heart rate still not controlled, we will consider RACHID guided cardioversion. Continue Coumadin for stroke prophylaxis. 2. VSD s/p repair 3. Hypertension: Controlled Plan Plan of Care Problems Medical Problems: (1) Atrial flutter with rapid ventricular response Status: Acute Comment Review of Relevant I have reviewed the following items neymar (where applicable) has been applied. Labs Laboratory Tests Test 02/11/19 04:20 Prothrombin Time 18.1 SEC (11.7-14.0) Prothromb Time International Ratio 1.5 (0.8-1.1) Sodium Level 138 mmol/L (136-145) Potassium Level 4.0 mmol/L (3.5-5.1) Chloride Level 104 mmol/L (98-107) Carbon Dioxide Level 26 mmol/L (21-32) Anion Gap 8 (6-14) Blood Urea Nitrogen 15 mg/dL (7-20) Creatinine 0.8 mg/dL (0.6-1.0) Estimated GFR (Cockcroft-Gault) 70.9 Glucose Level 95 mg/dL (70-99) Calcium Level 8.5 mg/dL (8.5-10.1) Magnesium Level 1.4 mg/dL (1.8-2.4) Medications Current Medications Aspirin (Children'S Aspirin) 81 mg DAILY PO Last administered on 02/11/19at 09:03; Start 02/11/19 at 09:00 Digoxin (Lanoxin) 500 mcg 1X ONCE IV Last administered on 02/11/19at 10:19; Start 02/11/19 at 10:15; Stop 02/11/19 at 10:18; Status DC Digoxin (Lanoxin) 500 mcg STK-MED ONCE .ROUTE ; Start 02/11/19 at 10:14; Stop 02/11/19 at 10:15; Status DC Diltiazem HCl 125 mg/Dextrose 125 ml @ 5 mls/hr CONT PRN IV SEE I/O RECORD; Start 02/10/19 at 21:00 Enoxaparin Sodium (Lovenox 40mg Syringe) 40 mg Q24H SQ ; Start 02/10/19 at 16:00; Stop 02/10/19 at 10:32; Status DC Magnesium Sulfate 100 ml @ 25 mls/hr 1X ONCE IV Last administered on 02/11/19at 11:03; Start 02/11/19 at 11:00; Stop 02/11/19 at 14:59 Non-Formulary Medication (Biotin/Keratin (Biotin Plus Keratin Tablet)) 1 each DAILY PO ; Start 02/11/19 at 09:00; Status UNV Non-Formulary Medication (Cinnamon Bark (Cinnamon)) 500 mg DAILY PO ; Start 02/11/19 at 09:00; Status UNV Non-Formulary Medication (Garlic ) 1,000 mg DAILY PO ; Start 02/11/19 at 09:00; Status UNV Warfarin Sodium (Coumadin) 2.5 mg 1X WARF ONCE PO Last administered on 02/10/19at 17:25; Start 02/10/19 at 16:00; Stop 02/10/19 at 16:01; Status DC Warfarin Sodium (Coumadin) 5 mg 1X WARF ONCE PO ; Start 02/10/19 at 16:00; Stop 02/10/19 at 16:01; Status Cancel Vitals/I & O Vital Sign - Last 24 Hours 11/24/19 11/24/19 11/24/19 11/24/19 14:33 19:00 20:00 21:37 Temp 97.7 98.3 97.7 98.3 Pulse 110 113 113 Resp 18 20 B/P (MAP) 118/71 (87) 128/74 (92) 128/74 Pulse Ox 96 94 O2 Delivery Room Air Room Air Room Air 02/10/19 02/11/19 02/11/19 02/11/19 23:00 03:00 07:00 07:55 Temp 98.1 97.8 97.2 98.1 97.8 97.2 Pulse 114 115 118 Resp 16 20 18 B/P (MAP) 120/70 (87) 123/79 (94) 118/78 (91) Pulse Ox 96 96 96 O2 Delivery Room Air Room Air Room Air Room Air 02/11/19 02/11/19 02/11/19 02/11/19 09:03 09:04 10:19 11:00 Temp 98.3 98.3 Pulse 118 118 115 117 Resp 18 B/P (MAP) 118/78 118/78 133/82 (99) Pulse Ox 95 O2 Delivery Room Air Intake and Output 02/10/19 02/10/19 02/11/19 15:00 23:00 07:00 Intake Total 800 ml 1040 ml Output Total 300 ml Balance 800 ml 740 ml LYUDMILA VAZQUEZ MD Feb 11, 2019 13:40
[2019-02-11 15:00] VITALS: BP 133/68
--- NOTE | 2019-02-11 15:48 | NUR ---
SS following for discharge planning. SS reviewed pt chart. Pt is from home with family and is currently on room air. No discharge needs noted at this time. SS will continue to follow for discharge planning.
[2019-02-11] MEDS ORDERED: WARFARIN 4 MG TABLET. PO ONE (16:00)
[2019-02-11] MEDS ORDERED: AMIODARONE 150 MG in IV DEXTROSE 5% 100ML 100 ML IV ONE (16:45)
[2019-02-11] MEDS ORDERED: AMIODARONE 900 MG in IV DEXTROSE 5% 500 ML IV PRN (16:45)
[2019-02-11 19:28] VITALS: BP 141/95
[2019-02-11 22:03] VITALS: BP 115/78
[2019-02-12 02:11] VITALS: BP 113/66
[2019-02-12 05:47] LABS: PROTHROMBIN TIME PATIENT 17.7 SEC (11.7-14.0)
[2019-02-12 06:14] LABS: CALCIUM 8.7 mg/dL (8.5-10.1); CREATININE 0.9 mg/dL (0.6-1.0); GFR 61.9; MAGNESIUM 1.7 mg/dL (1.8-2.4); POTASSIUM 3.8 mmol/L (3.5-5.1)
[2019-02-12 07:13] VITALS: BP 104/73
[2019-02-12] MEDS: METOPROLOL TART IMMED RELEASE 50 MG TABLET. PO SCH ×2 (07:47→20:55)
[2019-02-12] MEDS ORDERED: 0.9 % SODIUM CHLORIDE 10 ML DISP.SYRIN. IV PRN (09:45)
--- NOTE | 2019-02-12 10:09 | PDOC ---
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 HR 200s, SVT initially, got adenosine which resolved temporarily then went back into SVT, so adenosine 12 mgs, not resolved, HR 200s, and on cardizem gtt- 60 bpm at ER,. Cardiology consulted. This morning still in afib in 230s. She is fatigued, denies CP. Answers the phone during our conversation and placed her hand in my face, I left the room. Notably her mag level is 1.4 today. 02/12 Pt seen and examined Pt resting comfortably HR still high, going for cardioversion later today Vitals/I&O Vitals/I&O: Vital Signs Date Time Temp Pulse Resp B/P (MAP) Pulse Ox O2 Delivery O2 Flow Rate FiO2 02/12/19 08:00 Room Air 02/12/19 07:47 113 104/73 02/12/19 07:13 97.8 16 97 97.8 I & O 02/11/19 02/11/19 02/12/19 15:00 23:00 07:00 Intake Total 700 ml 900 ml 120 ml Output Total 800 ml Balance -100 ml 900 ml 120 ml Physical Exam General: Alert, Oriented X3, Cooperative, No acute distress Heart: Other (heart rate is irregular) Lungs: Clear Abdomen: Normal bowel sounds, Soft, No tenderness, No hepatosplenomegaly, No masses Extremities: No edema, No tenderness/swelling Skin: No rashes, No breakdown, No significant lesion Labs Labs: Laboratory Tests Test 02/12/19 04:21 Prothrombin Time 17.7 SEC (11.7-14.0) Prothromb Time International Ratio 1.5 (0.8-1.1) Sodium Level 140 mmol/L (136-145) Potassium Level 3.8 mmol/L (3.5-5.1) Chloride Level 104 mmol/L (98-107) Carbon Dioxide Level 25 mmol/L (21-32) Anion Gap 11 (6-14) Blood Urea Nitrogen 14 mg/dL (7-20) Creatinine 0.9 mg/dL (0.6-1.0) Estimated GFR (Cockcroft-Gault) 61.9 Glucose Level 95 mg/dL (70-99) Calcium Level 8.7 mg/dL (8.5-10.1) Magnesium Level 1.7 mg/dL (1.8-2.4) Review of Systems Review of Systems: No CP, SOB Assessment and Plan Assessmemt and Plan Problems Medical Problems: (1) Atrial flutter with rapid ventricular response Status: Acute Assessment Atrial flutter with rapid ventricular response - Paroxsymal atrial fibrillation HTN hypomagnesemia H/o PDA - repaired at H/o VSD - age 10 repair Plan Cardiology following Cardioversion later today Cardiology managing anti-rate drip Repeat mag still low, replacing with 2g IV HM PT/OT DVT prophylaxis Labs Cardiac monitoring Full code Comment Review of Relevant I have reviewed the following items neymar (where applicable) has been applied. Medications: Current Medications Medications (Trade) Dose Ordered Sig/Silvana Route PRN Reason Start Time Stop Time Status Last Admin Dose Admin Digoxin (Lanoxin) 500 mcg 1X ONCE IV 02/11/19 10:15 02/11/19 10:18 DC 02/11/19 10:19 Magnesium Sulfate 100 ml @ 25 mls/hr 1X ONCE IV 02/11/19 11:00 02/11/19 14:59 DC 02/11/19 11:03 Warfarin Sodium (Coumadin) 4 mg 1X WARF ONCE PO 02/11/19 16:00 02/11/19 16:01 DC 02/11/19 17:35 Amiodarone HCl 150 mg/Dextrose 103 ml @ 618 mls/hr 1X ONCE IV 02/11/19 16:45 02/11/19 16:54 DC 02/11/19 17:35 Amiodarone HCl 900 mg/Dextrose 518 ml @ 0 mls/hr CONT PRN IV SEE I/O RECORD 02/11/19 16:45 02/11/19 18:07 DC 02/11/19 18:07 GREGORY ADAMS III DO Feb 12, 2019 10:09
[2019-02-12 10:11] VITALS: BP 151/95
[2019-02-12] MEDS ORDERED: BENZOCAINE ONE 20% MUCOSAL SPRAY. MM (10:30)
[2019-02-12] MEDS ORDERED: LIDOCAINE 2% TOPICAL JELLY 30GM TUBE. TP ONE (10:30)
[2019-02-12] MEDS ORDERED: LIDOCAINE 2% VISCOUS 15 ML SOLUTION. SWSW ONE (10:30)
[2019-02-12] MEDS ORDERED: MAGNESIUM SULFATE 2GM 50 ML IV ONE (11:00)
[2019-02-12] MEDS ORDERED: IV RINGERS,LACTATED 1000ML 1,000 ML IV SCH (13:38)
[2019-02-12] MEDS ORDERED: LIDOCAINE 2% PF 5 ML VIAL. ONE (13:40)
[2019-02-12] MEDS ORDERED: PROPOFOL 20 ML IV ONE (13:40)
--- NOTE | 2019-02-12 14:14 | PDOC4 ---
PROCEDURE Procedure PROCEDURE RACHID guided external cardioversion INDICATIONS Atrial flutter with difficult to control heart rate COMPLICATIONS None PROCEDURAL DETAILS An informed consent was obtained from patient. After anesthesiology team induced deep sedation using intravenous propofol, a transesophageal echocardiogram probe was placed in standard tomographic images were obtained to rule out intracardiac thrombus. Patient was then administered 200 J of synchronized biphasic DC current with successful conversion of patient's rhythm from atrial flutter to sinus rhythm. She was hemodynamically stable without any neurological deficits at the end of procedure. She tolerated the procedure well. CONCLUSIONS Successful RACHID guided external cardioversion of patient's rhythm from atrial flutter to sinus rhythm LYUDMILA VAZQUEZ MD Feb 12, 2019 14:14
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
--- NOTE | 2019-02-12 14:46 | NUR ---
Pharmacy Warfarin Dosing Note S:Pharmacy consulted to assist with anticoagulation therapy with target INR: 2 -3 O:CHRISTIAN BECK is a 68 year old F with Atrial Fibrillation LABS: Last INR: 1.5 Last HGB: 15.4 Last HCT: Last PLT: 277 Last dose of 4 mg given on 02/11/19 at 1735 Previous Regimen: 2.5 md/day Vitamin K given: N Drug Interaction Changes: Same Interacting Drug Ongoing Drug Interactions: ASA A:INR of 1.5 is below desired range. Target range for this patient is: 2 -3 P: Warfarin dose: 4 mg Today at 1600 Bridge Therapy: Enoxaparin 1 mg/kg q12h Next INR due tomorrow Pharmacy anticoagulation service will continue to follow. Sarah Lau RPH, 02/12/19 [id number]
[2019-02-12] MEDS ORDERED: APIXABAN 5 MG TABLET. PO SCH (15:55)
[2019-02-12] MEDS ORDERED: WARFARIN 4 MG TABLET. PO ONE (16:00)
[2019-02-12] MEDS: PYRIDOXINE 50 MG TABLET. PO SCH (16:02)
[2019-02-12] MEDS: LISINOPRIL 20 MG TABLET PO SCH (16:02)
[2019-02-12] MEDS: MAGNESIUM OXIDE 400 MG TABLET PO SCH (16:03)
[2019-02-12] MEDS: CHOLECALCIFEROL (VITAMIN D3) 5,000 UNIT CAPSULE PO SCH (16:03)
[2019-02-12] MEDS: VITAMIN E 200 UNIT CAPSULE. PO SCH (16:03)
[2019-02-12] MEDS: ASPIRIN CHEWABLE 81 MG TABLET. PO SCH (16:03)
[2019-02-12] MEDS: AMIODARONE HCL 200 MG TABLET. PO SCH (16:03)
[2019-02-12] MEDS: FOLIC ACID 1 MG TABLET. PO SCH (16:03)
[2019-02-12 18:54] VITALS: BP 101/66
[2019-02-12 22:03] VITALS: BP 114/60
[2019-02-12] MEDS ORDERED: ANTI-COAG MONITOR BY PHARMACY. MC PRN (23:15)
[2019-02-13 05:23] LABS: BASO % 0 % (0-3); EOS # 0.1 x10^3/uL (0.0-0.7); EOS % 1 % (0-3); HEMOGLOBIN 12.8 g/dL (12.0-15.5); LYMPH # 2.3 x10^3/uL (1.0-4.8); LYMPH % 29 % (24-48); MEAN CORPUSCULAR HEMOGLOBIN 31 pg (25-35); MEAN CORPUSCULAR HGB CONC 34 g/dL (31-37); MEAN CORPUSCULAR VOLUME 91 fL (79-100); MONO # 0.7 x10^3/uL (0.0-1.1); MONO % 9 % (0-9); NEUT # 4.8 x10^3/uL (1.8-7.7); NEUT % 61 % (31-73); PLATELET COUNT 191 x10^3/uL (140-400); RED BLOOD COUNT 4.18 x10^6/uL (3.50-5.40); RED CELL DISTRIBUTION WIDTH 13.5 % (11.5-14.5); WHITE BLOOD COUNT 7.9 x10^3/uL (4.0-11.0)
[2019-02-13 05:32] LABS: PROTHROMBIN TIME PATIENT 19.4 SEC (11.7-14.0)
[2019-02-13 05:57] LABS: CALCIUM 8.7 mg/dL (8.5-10.1); CREATININE 0.9 mg/dL (0.6-1.0); GFR 61.9; MAGNESIUM 1.8 mg/dL (1.8-2.4)
--- NOTE | 2019-02-13 06:46 | CARD ---
MR#: [id number] Date of Study: 02/12/2019 Ordering Physician: DAVI WELLS, Referring Physician: DAVI WELLS, Tech: Meghann Obrien APPROVED REPORT EXAM: Transesophageal echocardiogram with color flow Doppler and Synchronized Cardioversion. INDICATION Palpitations AFlutter & Cardioconversion RISK FACTORS Hypertension Reason For Test : Rule out Intracardiac Thrombus. PROCEDURE After obtaining informed consent, patient underwent transesophageal echo in the PACU. Type of Sedation : General Anesthesia Sedation was administered by Dr. Abhijit Leonardo. Sedation was achieved with Propofol 150mg intravenously. The RACHID was performed without complications. Synchronized Cardioversion attempted: Successful Synchronized Cardioversion acheived with 200 Joules after 1 attempt(s). Rhythm following Synchronized Cardioversion: Normal Sinus Rhythm Throughout the procedure, the blood pressure, pulse oximetry, cardiac rhythm, and rate were monitored . The patient tolerated the procedure without adverse effects. Recovery from general anesthesia was une ventful and vital signs were stable. LEFT VENTRICLE The left ventricle is normal size. There is normal left ventricular wall thickness. The left ventricu lar systolic function is mild to moderately reduced. The Ejection Fraction is 40%. Diastology not per formed. RIGHT VENTRICLE The right ventricle is normal size. There is normal right ventricular wall thickness. The right ventr icular systolic function is normal. ATRIA The left atrium size is normal. The right atrium size is normal. The interatrial septum is intact wit h no evidence for an atrial septal defect or patent foramen ovale as noted on 2-D or Doppler imaging. There is no thrombus noted in the left atrial appendage. AORTIC VALVE The aortic valve is normal in structure and function. Doppler and Color Flow revealed trace aortic re gurgitation. There is no significant aortic valvular stenosis. MITRAL VALVE The mitral valve is normal in structure and function. There is no evidence of mitral valve prolapse. There is no mitral valve stenosis. Doppler and Color-flow revealed trace mitral regurgitation. TRICUSPID VALVE The tricuspid valve is normal in structure and function. Doppler and Color Flow revealed mild tricusp id regurgitation. There is no tricuspid valve stenosis. PULMONIC VALVE The pulmonary valve is normal in structure and function. Doppler and Color Flow revealed trace pulmon ic valvular regurgitation. GREAT VESSELS The aortic root is normal in size. PERICARDIAL EFFUSION There is no evidence of significant pericardial effusion. Critical Notification Critical Value: No <Conclusion> The left ventricular systolic function is mild to moderately reduced. The Ejection Fraction is 40%. Trace mitral regurgitation. Mild tricuspid regurgitation. There is no evidence of significant pericardial effusion. No intracardiac vegetation or thrombus. Signed by : Wang Nolasco, Electronically Approved : 02/13/2019 06:46:41
[2019-02-13 07:05] VITALS: BP 107/58
[2019-02-13] MEDS ORDERED: APIXABAN 5 MG TABLET. PO SCH (09:00)
--- NOTE | 2019-02-13 09:14 | NUR ---
please send vitamin b and magnesium oxide
[2019-02-13] MEDS: PYRIDOXINE 50 MG TABLET. PO SCH (09:30)
[2019-02-13] MEDS: MAGNESIUM OXIDE 400 MG TABLET PO SCH (09:30)
[2019-02-13] MEDS: CHOLECALCIFEROL (VITAMIN D3) 5,000 UNIT CAPSULE PO SCH (09:31)
[2019-02-13] MEDS: FOLIC ACID 1 MG TABLET. PO SCH (09:32)
[2019-02-13] MEDS: ASPIRIN CHEWABLE 81 MG TABLET. PO SCH (09:32)
[2019-02-13] MEDS: AMIODARONE HCL 200 MG TABLET. PO SCH (09:35)
[2019-02-13] MEDS: METOPROLOL TART IMMED RELEASE 50 MG TABLET. PO SCH (09:35)
[2019-02-13] MEDS: LISINOPRIL 20 MG TABLET PO SCH (09:36)
[2019-02-13] MEDS: VITAMIN E 200 UNIT CAPSULE. PO SCH (09:36)
[2019-02-13 11:04] VITALS: BP 118/56
--- NOTE | 2019-02-13 11:09 | PDOC ---
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 HR 200s, SVT initially, got adenosine which resolved temporarily then went back into SVT, so adenosine 12 mgs, not resolved, HR 200s, and on cardizem gtt- 60 bpm at ER,. Cardiology consulted. This morning still in afib in 230s. She is fatigued, denies CP. Answers the phone during our conversation and placed her hand in my face, I left the room. Notably her mag level is 1.4 today. 02/12 Pt seen and examined Pt resting comfortably HR still high, going for cardioversion later today 02/13 Pt seen and examined Pt resting comfortably Pt feels better since the cardioversion Vitals/I&O Vitals/I&O: Vital Signs Date Time Temp Pulse Resp B/P (MAP) Pulse Ox O2 Delivery O2 Flow Rate FiO2 02/13/19 11:04 98.0 61 18 118/56 (76) 97 Room Air 98.0 02/12/19 20:00 2.0 I & O 02/12/19 02/12/19 02/13/19 15:00 23:00 07:00 Intake Total 800 ml Balance 800 ml Physical Exam General: Alert, Oriented X3, Cooperative, No acute distress Heart: Other (heart rate is irregular) Lungs: Clear Abdomen: Normal bowel sounds, Soft, No tenderness, No hepatosplenomegaly, No masses Extremities: No edema, No tenderness/swelling Skin: No rashes, No breakdown, No significant lesion Labs Labs: Laboratory Tests Test 02/13/19 05:10 White Blood Count 7.9 x10^3/uL (4.0-11.0) Red Blood Count 4.18 x10^6/uL (3.50-5.40) Hemoglobin 12.8 g/dL (12.0-15.5) Hematocrit 38.0 % (36.0-47.0) Mean Corpuscular Volume 91 fL (79-100) Mean Corpuscular Hemoglobin 31 pg (25-35) Mean Corpuscular Hemoglobin Concent 34 g/dL (31-37) Red Cell Distribution Width 13.5 % (11.5-14.5) Platelet Count 191 x10^3/uL (140-400) Neutrophils (%) (Auto) 61 % (31-73) Lymphocytes (%) (Auto) 29 % (24-48) Monocytes (%) (Auto) 9 % (0-9) Eosinophils (%) (Auto) 1 % (0-3) Basophils (%) (Auto) 0 % (0-3) Neutrophils # (Auto) 4.8 x10^3/uL (1.8-7.7) Lymphocytes # (Auto) 2.3 x10^3/uL (1.0-4.8) Monocytes # (Auto) 0.7 x10^3/uL (0.0-1.1) Eosinophils # (Auto) 0.1 x10^3/uL (0.0-0.7) Basophils # (Auto) 0.0 x10^3/uL (0.0-0.2) Prothrombin Time 19.4 SEC (11.7-14.0) Prothromb Time International Ratio 1.7 (0.8-1.1) Sodium Level 134 mmol/L (136-145) Potassium Level 4.0 mmol/L (3.5-5.1) Chloride Level 101 mmol/L (98-107) Carbon Dioxide Level 27 mmol/L (21-32) Anion Gap 6 (6-14) Blood Urea Nitrogen 19 mg/dL (7-20) Creatinine 0.9 mg/dL (0.6-1.0) Estimated GFR (Cockcroft-Gault) 61.9 Glucose Level 104 mg/dL (70-99) Calcium Level 8.7 mg/dL (8.5-10.1) Magnesium Level 1.8 mg/dL (1.8-2.4) Review of Systems Review of Systems: No CP, SOB Assessment and Plan Assessmemt and Plan Problems Medical Problems: (1) Atrial flutter with rapid ventricular response Status: Acute Assessment Atrial flutter with rapid ventricular response - Paroxsymal atrial fibrillation HTN hypomagnesemia H/o PDA - repaired at H/o VSD - age 10 repair Plan Cardiology following Cardioversion successful Mg now normal HM PT/OT DVT prophylaxis Labs Cardiac monitoring Full code DC when OK with cardiology Comment Review of Relevant I have reviewed the following items neymar (where applicable) has been applied. Medications: Current Medications Medications (Trade) Dose Ordered Sig/Silvana Route PRN Reason Start Time Stop Time Status Last Admin Dose Admin Ringer's Solution 1,000 ml @ 50 mls/hr Q20H IV 02/12/19 13:38 02/13/19 01:37 DC 02/12/19 13:57 Amiodarone HCl (Cordarone) 200 mg DAILY PO 02/12/19 15:30 02/13/19 09:35 Apixaban (Eliquis) 5 mg [id number] PO 02/12/19 15:55 02/12/19 23:02 DC 02/12/19 16:02 Apixaban (Eliquis) 5 mg BID PO 02/13/19 09:00 02/13/19 09:32 Info (Anti-Coagulation Monitoring By Pharmacy) 1 each PRN DAILY PRN MC SEE COMMENTS 02/12/19 23:15 02/13/19 03:07 GREGORY ADAMS III DO Feb 13, 2019 11:09
[2019-02-13] MEDS ORDERED: AMIO200T4 PO (11:37)
[2019-02-13] MEDS ORDERED: APIX5TAB PO (11:37)
--- NOTE | 2019-02-13 13:10 | PDOC ---
PROGRESS NOTES Subjective Subjective Patient feeling better today. Denied any chest pain or palpitations. Objective Objective Vital Signs Date Time Temp Pulse Resp B/P (MAP) Pulse Ox O2 Delivery O2 Flow Rate FiO2 02/13/19 11:04 98.0 61 18 118/56 (76) 97 Room Air 98.0 02/12/19 20:00 2.0 Intake and Output 02/13/19 07:00 Intake Total 800 ml Balance 800 ml Intake Oral 800 ml # Voids 7 Physical Exam Abdomen: Normal bowel sounds, Soft, No tenderness, No hepatosplenomegaly, No masses Heart: Regular rate Extremities: No edema, No tenderness/swelling General: Alert, Oriented X3, Cooperative, No acute distress HEENT: Atraumatic, PERRLA Lungs: Clear to auscultation, Normal air movement Neuro: Normal gait, Normal speech, Normal tone, Sensation intact, Reflexes 2+ Psych/Mental Status: Mental status NL, Mood NL Skin: No rashes, No breakdown, No significant lesion Assessment Assessment 1. Atrial flutter/fibrillation: Since patient's heart rate was difficult to control despite pharmacologic therapy, she underwent successful RACHID guided cardioversion yesterday. She is presently maintaining sinus rhythm. Continue amiodarone for rhythm maintenance and eliquis for stroke prophylaxis. 2. VSD s/p repair 3. Hypertension: Controlled Follow-up with our office in 1 month. Plan Plan of Care Problems Medical Problems: (1) Atrial flutter with rapid ventricular response Status: Acute Comment Review of Relevant I have reviewed the following items neymar (where applicable) has been applied. Labs Laboratory Tests Test 02/13/19 05:10 White Blood Count 7.9 x10^3/uL (4.0-11.0) Red Blood Count 4.18 x10^6/uL (3.50-5.40) Hemoglobin 12.8 g/dL (12.0-15.5) Hematocrit 38.0 % (36.0-47.0) Mean Corpuscular Volume 91 fL (79-100) Mean Corpuscular Hemoglobin 31 pg (25-35) Mean Corpuscular Hemoglobin Concent 34 g/dL (31-37) Red Cell Distribution Width 13.5 % (11.5-14.5) Platelet Count 191 x10^3/uL (140-400) Neutrophils (%) (Auto) 61 % (31-73) Lymphocytes (%) (Auto) 29 % (24-48) Monocytes (%) (Auto) 9 % (0-9) Eosinophils (%) (Auto) 1 % (0-3) Basophils (%) (Auto) 0 % (0-3) Neutrophils # (Auto) 4.8 x10^3/uL (1.8-7.7) Lymphocytes # (Auto) 2.3 x10^3/uL (1.0-4.8) Monocytes # (Auto) 0.7 x10^3/uL (0.0-1.1) Eosinophils # (Auto) 0.1 x10^3/uL (0.0-0.7) Basophils # (Auto) 0.0 x10^3/uL (0.0-0.2) Prothrombin Time 19.4 SEC (11.7-14.0) Prothromb Time International Ratio 1.7 (0.8-1.1) Sodium Level 134 mmol/L (136-145) Potassium Level 4.0 mmol/L (3.5-5.1) Chloride Level 101 mmol/L (98-107) Carbon Dioxide Level 27 mmol/L (21-32) Anion Gap 6 (6-14) Blood Urea Nitrogen 19 mg/dL (7-20) Creatinine 0.9 mg/dL (0.6-1.0) Estimated GFR (Cockcroft-Gault) 61.9 Glucose Level 104 mg/dL (70-99) Calcium Level 8.7 mg/dL (8.5-10.1) Magnesium Level 1.8 mg/dL (1.8-2.4) Medications Current Medications Amiodarone HCl (Cordarone) 200 mg DAILY PO Last administered on 02/13/19at 09:35; Start 02/12/19 at 15:30 Apixaban (Eliquis) 5 mg BID PO Last administered on 02/13/19 09:32; Start 02/13/19 at 09:00 Apixaban (Eliquis) 5 mg [id number] PO Last administered on 02/12/19 16:02; Start 02/12/19 at 15:55; Stop 02/12/19 at 23:02; Status DC Info (Anti-Coagulation Monitoring By Pharmacy) 1 each PRN DAILY PRN MC SEE COMMENTS Last administered on 02/13/19at 03:07; Start 02/12/19 at 23:15 Lidocaine HCl (Lidocaine Pf 2% Vial) 5 ml STK-MED ONCE .ROUTE ; Start 02/12/19 at 13:40; Stop 02/12/19 at 13:40; Status DC Propofol 20 ml @ As Directed STK-MED ONCE IV ; Start 02/12/19 at 13:40; Stop 02/12/19 at 13:40; Status DC Ringer's Solution 1,000 ml @ 50 mls/hr Q20H IV Last administered on 02/12/19at 13:57; Start 02/12/19 at 13:38; Stop 02/13/19 at 01:37; Status DC Warfarin Sodium (Coumadin) 4 mg 1X WARF ONCE PO ; Start 02/12/19 at 16:00; Stop 02/12/19 at 15:31; Status DC Vitals/I & O Vital Sign - Last 24 Hours 02/12/19 02/12/19 02/12/19 02/12/19 14:07 14:07 14:22 14:37 Temp 97.9 97.9 97.9 97.9 Pulse 59 66 66 Resp 20 20 22 B/P (MAP) 149/86 136/66 117/81 Pulse Ox 97 98 98 O2 Delivery Nasal Cannula Nasal Cannula Nasal Cannula Room Air O2 Flow Rate 2 4 2 02/12/19 02/12/19 02/12/19 02/12/19 14:51 16:02 16:03 18:54 Temp 97.9 98.1 97.9 98.1 Pulse 67 67 67 67 Resp 20 16 B/P (MAP) 144/80 137/80 137/80 101/66 (78) Pulse Ox 97 97 O2 Delivery Nasal Cannula Room Air O2 Flow Rate 2 02/12/19 02/12/19 02/12/19 02/13/19 20:00 20:55 22:03 07:05 Temp 98.2 97.6 98.2 97.6 Pulse 67 65 74 Resp 16 16 B/P (MAP) 101/66 114/60 (78) 107/58 (74) Pulse Ox 98 96 O2 Delivery Nasal Cannula Room Air Room Air O2 Flow Rate 2.0 02/13/19 02/13/19 02/13/19 02/13/19 09:35 09:35 09:36 11:04 Temp 98.0 98.0 Pulse 64 85 66 61 Resp 18 B/P (MAP) 124/58 124/58 124/58 118/56 (76) Pulse Ox 97 O2 Delivery Room Air Intake and Output 02/12/19 02/12/19 02/13/19 15:00 23:00 07:00 Intake Total 800 ml Balance 800 ml LYUDMILA VAZQUEZ MD Feb 13, 2019 13:10
== END 2019-02-13 13:00 | disposition home or self-care (01) | DRG 309 ==
LOC: ER 07:31 → 2 SOUTH 09:09
PROVIDERS: ADMIT Internal Medicine; ATTEND Internal Medicine
PROC: 5A2204Z Restoration of Cardiac Rhythm, Single (ICD-10-PCS; principal; 2019-02-12 13:45)
PROC: B246ZZ4 Ultrasonography of Right and Left Heart, Transesophageal (ICD-10-PCS; 2019-02-12 13:45)
DX: I48.92 Unspecified atrial flutter (principal); D68.69 Other thrombophilia; E83.42 Hypomagnesemia; M19.90 Unspecified osteoarthritis, unspecified site; I11.0 Hypertensive heart disease with heart failure; I50.9 Heart failure, unspecified; I48.0 Paroxysmal atrial fibrillation; Z88.5 Allergy status to narcotic agent; Z88.8 Allergy status to other drugs, medicaments and biological substances; Z87.74 Personal history of (corrected) congenital malformations of heart and circulatory system; Z79.01 Long term (current) use of anticoagulants; Z82.49 Family history of ischemic heart disease and other diseases of the circulatory system
CPT/HCPCS: 36415; 71045; 80048; 80053; 83735; 83880; 84443; 84484; 85025; 85610; 92960; 93005; 93312; 93325; 96365; 96375; 96376; J0153; J0282; J1160; J1650; J2001; J2704; J3475; J3490; J7030; J7120; 99291-25; G0378

== ENCOUNTER → 2020-02-18 | Outpatient (CLI) | payer MEDICARE ==
[~2020-02-18] MED LIST changes: +AMIO200T6 PO; +APIX5TAB PO; -WARF-78 PO; +WARF2.5T2 PO; -WARF2.5T83 PO; +WARF5TAB2 PO
--- NOTE | 2020-02-18 17:02 | CARD ---
MR#: [id number] Date of Study: 02/18/2020 Ordering Physician: LYUDMILA VAZQUEZ, Referring Physician: LYUDMILA VAZQUEZ, Tech: Kristel Miramontes ARSENIO APPROVED REPORT EXAM: Two-dimensional and M-mode echocardiogram with Doppler and color Doppler. Other Information Quality : AverageHR: 56bpm Rhythm : NSRTechnically limited study due to body habitus. INDICATION History of PAF, cardioversion. History of PDA and VSD closure at age 10. 2D DIMENSIONS RVDd3.3 (2.9-3.5cm)IVSd1.0 (0.7-1.1cm) Aortic Root(2D)3.0 (2.0-3.7cm)LVDd4.8 (3.9-5.9cm) PWd0.8 (0.7-1.1cm)LVDs3.4 (2.5-4.0cm) FS (%) 28.8 %SV58.3 ml LVEF(%)55.3 (>50%) Aortic Valve AoV Peak Nikko.106.9cm/Waqar Peak GR.4.6mmHg LVOT Peak Nikko.81.3cm/s Mitral Valve MV E Hxumcvej43.5cm/sMV DECEL [id number] MV A Vehkmnsr56.5cm/sE/A Ratio1.4 MV A Yheloroe473ch Pulmonary Valve PV Peak Lwlxwiyk46.6cm/s Tricuspid Valve TR P. Agwoxfyd211gp/sRAP QCYUECVY2yhFv TR Peak Gr.00zlGiUWVB76pfNz Pulmonary Vein S1 Vvhxafxi16.9cm/sD2 Jwovbqyp58.2cm/s LEFT VENTRICLE History of membranous VSD closure.The left ventricle is normal size. There is normal left ventricular wall thickness. Left ventricle systolic function is mildly decreased. EF 45-50% There is mild global hypokinesis. Tissue Doppler imaging reveals moderate left ventricular diastolic dysfunction. RIGHT VENTRICLE The right ventricle is normal size. The right ventricular systolic function is normal. ATRIA The left atrium is moderately dilated. The right atrium is mildly dilated. The interatrial septum is intact with no evidence for an atrial septal defect or patent foramen ovale as noted on 2-D or Dopple r imaging. AORTIC VALVE The aortic valve is not well visualized. Trace aortic regurgitation. No aortic valvular stenosis. MITRAL VALVE The mitral valve is normal in structure. Leaflets are mildly calcified. There is no mitral valve sten osis. Moderate mitral regurgitation. TRICUSPID VALVE The tricuspid valve is normal in structure. Moderate tricuspid regurgitation. The PA pressure was est imated at 55 mmHg. There is no tricuspid valve stenosis. PULMONIC VALVE The pulmonic valve is not well visualized. Trace pulmonic valvular regurgitation. There is no pulmoni c valvular stenosis. GREAT VESSELS The aortic root is normal in size. The ascending aorta is not well seen. The IVC is normal in size an d collapses >50% with inspiration. PERICARDIAL EFFUSION There is no evidence of significant pericardial effusion. Critical Notification Critical Value: No <Conclusion> Left ventricle systolic function is mildly decreased. EF 45-50% There is mild global hypokinesis. History of membranous VSD closure.The left ventricle is normal size. Moderate tricuspid regurgitation. The PA pressure was estimated at 55 mmHg. Signed by : Jose Miguel Sinclair, Electronically Approved : 02/18/2020 17:01:39
== END ==
LOC: ECHO 12:15
PROVIDERS: ATTEND Internal Medicine Cardiovascular Disease
DX: I08.1 Rheumatic disorders of both mitral and tricuspid valves (principal); I48.91 Unspecified atrial fibrillation
CPT/HCPCS: 93306